=== PATIENT | female | born 2000 | race Asian ===

== ENCOUNTER 2019-01-06 10:53 | Inpatient (IN) | payer OTHER ==
[~2019-01-06 10:53] MED LIST: PROPOFOL/EMULSION 1,000 MG/100 ML BOTTLE IV ONE
--- NOTE | 2019-01-06 11:11 | EDPHY ---
H & P Time Seen by Provider: 01/06/19 11:09 Constitutional: Initial Vital Signs Temperature (C) 37.0 C 01/06/19 11:18 Heart Rate 130 H 01/06/19 11:18 Respiratory Rate 30 H 01/06/19 11:18 Blood Pressure 105/76 01/06/19 11:18 O2 Sat (%) 96 01/06/19 11:18 O2 Delivery Mode [Post Non-Rebreather Mask Procedure 1st] O2 Delivery Mode [Procedural Non-Rebreather Mask 2nd] O2 Delivery Mode [Procedural Non-Rebreather Mask 1st] O2 Delivery Mode [.Immediate Non-Rebreather Mask Pre-Procedure] O2 Delivery Mode Ventilator O2 (L/minute) [Post Procedure 15 1st] O2 (L/minute) [Procedural 2nd] 15 O2 (L/minute) [Procedural 1st] 15 O2 (L/minute) [.Immediate Pre- 15 Procedure] O2 (L/minute) 15 Allergies/Adverse Reactions: No Known Allergies Allergy (Unverified 01/06/19 11:23) Home Medications: Medication Instructions Recorded NK [No Known Home Meds] 01/06/19 Medical Decision Making - Diagnostics Imaging: I viewed and interpreted images myself ED Course/Re-evaluation: CHIEF COMPLAINT: Cough HISTORY OF PRESENT ILLNESS: The patient is a 18 y/o female complaining of a cough onset 1 week ago. She flew to [place] from [facility] 1 week ago and has a worsening cough since. Due to this cough she is unable to take a deep breath as that exacerbates her cough. As her symptoms have not improved she went to an urgent care who advised that she present to the emergency department. No fever, headache, body aches, lightheadedness, chest pain, heart palpitations, abdominal pain, urinary or bowel complaints, numbness, paresthesias. A Mandarin gyroscopic instrument tester was used at bedside to communicate with the patient. REVIEW OF SYSTEMS: A comprehensive 10 system review of systems is otherwise negative aside from elements mentioned in the history of present illness and medical decision making. PHYSICAL EXAM: HR, BP, O2 Sat, RR. Temp noted General Appearance: Alert, well hydrated, appropriate, and non-toxic appearing. Head: Atraumatic without scalp tenderness or obvious injury Eyes: Pupils equal, round, reactive to light and accommodation, EOMI, no trauma , no injection. Ears: Clear bilaterally, no perforation, normal landmarks Nose: Atraumatic, no rhinorrhea, clear. Throat: There is no erythema or exudates, no lesions, normal tonsils, mucus membranes moist. Neck: Supple, 2+ carotid upstroke, nontender, no lymphadenopathy. Respiratory: Diminished breath sounds on the right and has a cough. Tachypneic. No retractions, no wheezes, and no accessory muscle use. Cardiovascular: Tachycardic, no murmurs, rubs, or gallops. Bilateral carotid, radial, dorsalis pedis, and posterior tibial pulses intact. Good capillary refill all extremities. Gastrointestinal: Abdomen is soft, nontender, non-distended, no masses, no rebound, no guarding, no peritoneal signs. Musculoskeletal: Normal active ROM of all extremities, atraumatic. Neurological: Alert, appropriate, and interactive. The patient has normal DTRs and non-focal cranial nerves, motor, sensory, and cerebellar exam. Skin: No rashes, good turgor, no nodules on palpation. Past medical history: Denies Past surgical history: Denies Family history: Denies Social history: Originally from [place], single, student at . DIAGNOSTICS/PROCEDURES/CRITICAL CARE TIME: Chest x-ray: Right-sided complete tension pneumothorax. Procedure: Conscious sedation. Indication: Chest tube placement The patient is an appropriate candidate to tolerate procedural sedation. The patient's vitals signs and mental status are appropriate. The risks, benefits and alternatives of the sedation were discussed with the patient. The patient is ASA classification 1. The patient's Mallampati airway score was 1 and the patient did meet the 3-3-2 airway measurements. A time out was completed. The patient was sedated with 15mg IV Propofol and 30mg IV Ketamine. The patient was monitored with continuous pulse oximetry, lunchroom monitor and end tidal CO2. There were no complications and no significant hypoxemia. I performed both the sedation and the procedure. The total time I spent at the bedside during the procedural sedation was 20 minutes. The patient was examined after the procedural sedation and has returned to their pre-sedation baseline with normal vital signs and a normal examination. Procedure: Chest tube placement. Indication: Pneumothorax. Risks, benefits, alternatives discussed with the patient including but not limited to bleeding, infection, internal organ injury, and collapsed lung. Consent was obtained. A time out was observed. Full maximal sterile barrier technique was used including cap, gown, sterile gloves, large sheet, hand washing and chlorhexidine prep. The area was anesthetized with Bupivacaine with epinephrine. A 3cm skin incision was made on top of the 5th rib at the mid- clavicular line. A 36 Mauritanian chest tube was placed carefully over the top of the 5th rib on the right side. The tube was sutured in place and dressed with an occlusive Vaseline gauze then dry sterile dressing. Post placement chest x-ray demonstrated the tube to be in the appropriate position. Following placement of the tube the patient's condition initially improved. The patient tolerated the procedure well and there were no complications during the procedure. The procedure was performed by myself, Dr. Auguste. Post-procedure chest x-ray: Re-expanded right lung. Repeat post-procedure chest x-ray: Re-expansion right lung pulmonary edema. Critical care time spent by me, Dr. Auguste, exclusively with this patient was 45 minutes, exclusive of PA time and exclusive of procedures. The organ system at risk was pulmonary and placed a chest tube and transferred the patient to the general surgeon to prevent worsening of the patients condition. DIFFERENTIAL DIAGNOSIS: The differential diagnosis for the patient's cough included but was not limited to pneumothorax, pneumonia, myocardial infarction, acute mountain sickness, high altitude pulmonary edema, congestive heart failure, and pulmonary embolus. MEDICAL DECISION MAKING: The patient is a 18 y/o female presenting with a worsening cough onset 1 week ago after flying from [facility] to [place]. On exam she has diminished breath sounds on the right, is tachycardic, and has a cough. I suspect she has a right- sided pneumonia. Chest x-ray and labs ordered; DuoNeb administered. 1208: I reviewed patient's chest x-ray which reveals a complete right-sided pneumothorax. 1210: I consulted with Dr. Gunter, general surgeon, regarding this patient. I will place a chest tube. 1220: Reassessed patient and discussed imaging findings. I have also had a long discussion about placing a chest tube. She is not sure if she wants the chest tube and would like to talk with her family in [facility] first. 1310: Reassessed patient and had an extensive conversation with with her and her parents who are currently in [facility]. The patient and her parents are comfortable and agree with plan for chest tube. 1340: Patient has been transferred to trauma room 1 for a chest tube. 1348: 30mg IV Ketamine and 15mg IV propofol administered. 1405: I reviewed patient's repeat chest x-ray after the chest tube was placed. Her right lung is starting to inflate, suction has not been applied to the chest tube. 1406: Patient is waking up and is coughing due to the chest tube. Patient will need a 1mg IV Dilaudid. Suction applied. 1412: I reviewed patient's repeat chest x-ray after the chest tube was placed with suction. Her right lung is now re-expanded. I will page Dr. Gunter to admit this patient. 1419: Patient is anxious and coughing after the chest tube procedure; 1mg IV Ativan administered. 1428: I consulted with Dr. Gunter, he accepts admission of this patient. He agrees with my course of care. 1430: Reassessed patient as she continues to cough. Repeat chest x-ray ordered; it appears there is right-sided pulmonary edema. 1446: I consulted with Dr. Gunter, regarding patient's re-expansion pulmonary edema. Patient will need to be admitted to the ICU and maintained on at least a NRB. 1456: Patient's BP's are 92/70 and she is becoming pale. I will page the commanding officer homicide squad regarding this as a re-expansion pulmonary edema has a high mortality rate. The chance of a re-expansion pulmonary edema is very low, around 1%. 1504: Reassessed patient, there is now sero-sanguineus straw-colored fluid draining from the chest tube. Before there was only air coming from the chest tube and no blood was expressed when the tube was initially placed. By this point the patient has received a total fo 3L of fluid. We will not be giving the patient anymore fluid. 1515: Patient care turned over to Dr. Kumar pending consultation with Dr. Naranjo. (Celso Auguste) I took over care of this patient from Dr. Celso Auguste at 3:00 p.m.. 3:20 p.m., spoke with Dr. Tam Naranjo regarding further care of this patient. He does not recommend steroids at this time. The patient is currently on 15 L of facemask and nasal cannula oxygen with pulse oximetries in the low 90s. I suggested CPAP and he felt this was worth trying. Respiratory therapy paged. 3:30 p.m., I was called to the bedside, the patient was vomiting, vomit was a frothy serous sanguinous fluid. She was given 4 mg of IV Zofran and 12.5 mg of IV Phenergan. We got her vomiting under control. She started to relax more. We were able to get her back on face mask oxygen and nasal cannula oxygen. She is requiring high volumes of both maintain pulse oximetries in the mid to low 90s. Currently 15 L for each. Her blood pressures also have been more labile dipping down into the mid 70s systolic and then up to the high 80s. 3:40 p.m., respiratory therapy at the bedside. We explained to the patient the plan to try CPAP. Initial peep setting of 8. We attempted several trials of CPAP. The patient did not tolerate this. She started to become increasingly agitated. We withdrew attempts on CPAP and placed her back on nasal cannula high-flow O2 and face mask. She kept making repeated attempts to tear her nasal cannula on face mask off. Pulse oximetries dropped into the 70s. Systolic blood pressure into the low 70s. Decision was made to intubate her. Procedure: Rapid sequence intubation. Indication for the procedure was hypoxia, agitation, history of pneumothorax with re-expansion pulmonary edema. The patient was preoxygenated with 100% oxygen by face mask. The patient was sedated with 20 mg of IV etomidate and paralyzed with 200 mg of IV succinylcholine. Direct laryngoscopy was used to intubate secondary to significant pulmonary fluid buildup in her oral pharynx and the need for aggressive suctioning. The patient was orally endotracheally intubated under direct visualization with a 8.0 ETT. Tracheal intubation was confirmed with misting on the tube; breath sounds were auscultated equally bilaterally; appropriate color change with [place] End Tidal CO2 detector, capnography waveform is appropriate, oxygen saturation after procedure is 92%. Chest X-ray shows ETT low and in the right mainstem. Respiratory therapy was instructed to withdrawal the endotracheal tube by 3.5 cm. The procedure was performed by myself. Initial vent settings: FiO2 of 100%, assist control, rate of 16, tidal volume of 450, peep of 5. Post intubation the patient was sedated with 150 mcg of IV fentanyl initially. Her blood pressures remained very labile with systolic pressures in the mid 60s. Push dose phenylephrine was used for temporary pressor support. She was given a total of 300 mcg over about 12 min. With this medication we were able to get her systolic blood pressures up into the mid 80s. She was then started on a temporary low-dose norepi drip at 5 micrograms/minute. She was given 50 mg of IV ketamine for further sedation. She was then started on a ketamine drip at 1 milligram/kilogram per hour. Ketamine was used secondary to its favorable hemodynamic properties. Levophed drip was titrated up to a high of 8 micrograms/minute with systolic blood pressures in the 90s. We consistently got her systolic blood pressures over 100. Levophed drip was then weaned down. Systolic blood pressures remained just over 100. Levophed drip was discontinued. Her pulse oximetries remained in the low to mid 90s. She was then transferred to the ICU. ED critical care time: I spent a total of 105 minutes of critical care time in obtaining history, performing a physical exam, bedside monitoring of interventions, collecting and interpreting tests and discussion with consultants but not including time spent performing procedures. Of note, I spoke with the nursing staff on the ICU. I followed up on her repeat chest x-ray post intubation and endotracheal tube adjustment. The patient's endotracheal tube is still in the right mainstem on repeat chest x- ray after it was reported to be withdrawn 3.5 cm by the respiratory techs. The ICU staff is aware of this. The ICU staff are currently preparing to adjust the endotracheal tube appropriately. They will obtain a post adjustment chest x-ray as well. (Satya Kumar) - Data Points Laboratory Results: Laboratory Results 01/07/19 05:00 01/07/19 05:00 Microbiology Results: MICROBIOLOGY 01/06/19 23:00 Sputum, Induced/Suctioned - Final 01/06/19 23:00 Sputum, Induced/Suctioned Sputum Culture - Final Medications Given: Acetaminophen (Tylenol) 650 mg PO Q6H PRN PRN Reason: Pain, Mild/Fever,Can't Take PO Stop: 07/08/19 08:27 Last Admin: 01/09/19 09:29 Dose: 650 mg Enoxaparin Sodium (Lovenox) 40 mg SC DAILY MARISOL Stop: 07/06/19 11:29 Last Admin: 01/09/19 08:16 Dose: 40 mg Guaifenesin (Robitussin Oral Liquid 200mg/10ml) 200 mg PO Q4HRS PRN PRN Reason: Cough, Mild Stop: 07/07/19 21:53 Last Admin: 01/10/19 00:47 Dose: 200 mg Ibuprofen (Motrin) 600 mg PO Q6HRS PRN PRN Reason: Pain, Mild Stop: 07/07/19 21:53 Last Admin: 01/10/19 00:47 Dose: 600 mg Discontinued Medications Acetaminophen (Tylenol Rectal) 650 mg TX Q6H PRN PRN Reason: Pain, Mild/Fever,Can't Take PO Stop: 07/05/19 18:50 Last Admin: 01/07/19 03:47 Dose: 650 mg Albuterol/Ipratropium (Duoneb) 3 ml IH EDNOW ONE Stop: 01/06/19 11:21 Last Admin: 01/06/19 11:28 Dose: 3 ml Chlorhexidine Gluconate (Peridex) 15 ml PO Q12@08,20 [facility] Stop: 07/06/19 07:59 Last Admin: 01/08/19 07:58 Dose: Not Given Etomidate (Etomidate) 20 mg IVP ONCE ONE Stop: 01/06/19 17:15 Last Admin: 01/06/19 17:20 Dose: Not Given Etomidate (Etomidate) 20 mg IVP ONCE ONE Stop: 01/06/19 17:17 Last Admin: 01/06/19 15:57 Dose: 20 mg Famotidine (Pepcid) 20 mg PO BID [facility] Stop: 07/08/19 08:59 Last Admin: 01/09/19 08:16 Dose: 20 mg Fentanyl (Sublimaze) 150 mcg IV ONCE ONE Stop: 01/06/19 17:01 Last Admin: 01/06/19 16:01 Dose: 150 mcg Fentanyl (Sublimaze) 100 mcg IV ONCE ONE Stop: 01/06/19 17:01 Last Admin: 01/06/19 16:07 Dose: 100 mcg Furosemide (Lasix Injection) 20 mg IVP ONCE ONE Stop: 01/07/19 11:19 Last Admin: 01/07/19 11:24 Dose: 20 mg Hydromorphone HCl (Dilaudid) 1 mg IVP ONCE ONE Stop: 01/06/19 14:09 Last Admin: 01/06/19 14:08 Dose: 1 mg Sodium Chloride (Ns) 1,000 mls @ 0 mls/hr IV EDNOW ONE; Wide Open PRN Reason: Protocol Stop: 01/06/19 11:25 Last Admin: 01/06/19 11:28 Dose: 1,000 mls Sodium Chloride (Ns) 1,000 mls @ 0 mls/hr IV EDNOW ONE; Wide Open PRN Reason: Protocol Stop: 01/06/19 11:25 Last Admin: 01/06/19 11:39 Dose: 1,000 mls Sodium Chloride (Ns) 1,000 mls @ 0 mls/hr IV ONCE ONE; Wide Open PRN Reason: Protocol Stop: 01/06/19 15:16 Last Admin: 01/06/19 14:00 Dose: 1,000 mls Sodium Chloride (Ns) 1,000 mls @ 0 mls/hr IV ONCE ONE; Wide Open PRN Reason: Protocol Stop: 01/06/19 15:17 Last Admin: 01/06/19 14:30 Dose: 300 mls Ketamine HCl 500 mg/ Dextrose 510 mls @ 0 mls/hr IV CONT MARISOL PRN Reason: As Directed Stop: 07/05/19 16:29 Last Admin: 01/06/19 18:26 Dose: 510 mls Ketamine HCl 500 mg/ Dextrose 510 mls @ 0 mls/hr IV EDNOW ONE PRN Reason: As Directed Stop: 01/06/19 17:31 Last Admin: 01/06/19 16:27 Dose: 510 mls Norepinephrine 16 mg/ Dextrose 266 mls @ 0 mls/hr IV EDNOW ONE; Per Protocol PRN Reason: Protocol Stop: 01/06/19 17:31 Last Admin: 01/06/19 16:26 Dose: 266 mls Fentanyl/Sodium Chloride (Fentanyl 10 Mcg/Ml (Premix)) 100 mls @ 0 mls/hr IV CONT MARISOL; Per Protocol PRN Reason: Protocol Stop: 01/16/19 18:26 Last Admin: 01/07/19 20:29 Dose: 100 mls Propofol (Diprivan 10 Mg/Ml (Premix)) 100 mls @ 0 mls/hr IV CONT MARISOL; Per Protocol PRN Reason: Protocol Stop: 07/05/19 18:26 Last Admin: 01/06/19 18:43 Dose: 100 mls Ketamine HCl 500 mg/ Sodium (Chloride) 510 mls @ 0 mls/hr IV CONT MARISOL; Per Protocol PRN Reason: Protocol Stop: 07/05/19 18:59 Last Admin: 01/07/19 13:31 Dose: 510 mls Vancomycin/Sodium Chloride (Vancomycin 1 Gm (Premix)) 250 mls @ 250 mls/hr IV Q12H MARISOL PRN Reason: Protocol Stop: 02/05/19 22:29 Last Admin: 01/07/19 10:01 Dose: 250 mls Piperacillin/Tazobactam/Dextrose (Zosyn 3.375 Gm (Premix)) 50 mls @ 100 mls/hr IV Q6HRS MARISOL PRN Reason: Protocol Stop: 02/06/19 00:00 Last Admin: 01/07/19 11:26 Dose: 50 mls Famotidine/Sodium Chloride (Pepcid 20 Mg (Premix)) 50 mls @ 200 mls/hr IV Q12HRS MARISOL Stop: 07/06/19 08:59 Last Admin: 01/08/19 21:32 Dose: 50 mls Potassium Chloride (Potassium Cl 10 Meq (Premix)) 50 mls @ 50 mls/hr IV Q1H [facility] Stop: 01/08/19 12:12 Last Admin: 01/08/19 10:39 Dose: 50 mls Potassium Chloride 20 meq/ (Sodium Chloride) 1,000 mls @ 100 mls/hr IV CONT MARISOL Stop: 07/07/19 15:29 Last Admin: 01/08/19 15:41 Dose: 1,000 mls Potassium Chloride (Potassium Cl 10 Meq (Premix)) 50 mls @ 50 mls/hr IV Q1H [facility] Stop: 01/08/19 20:14 Last Admin: 01/08/19 18:36 Dose: 50 mls Ketamine HCl (Ketamine) 30 mg IVP EDNOW ONE Stop: 01/06/19 15:12 Last Admin: 01/06/19 13:48 Dose: 30 mg Lorazepam (Ativan Injection) 1 mg IVP ONCE ONE Stop: 01/06/19 14:22 Last Admin: 01/06/19 14:21 Dose: 1 mg Midazolam HCl (Versed) 2 mg IVP ONCE ONE Stop: 01/06/19 17:40 Last Admin: 01/06/19 17:51 Dose: 2 mg Midazolam HCl (Versed) 2 mg IVP ONCE ONE Stop: 01/06/19 22:34 Last Admin: 01/06/19 23:23 Dose: 2 mg Ondansetron HCl (Zofran) 4 mg IVP EDNOW ONE Stop: 01/06/19 15:39 Last Admin: 01/06/19 15:25 Dose: 4 mg Ondansetron HCl (Zofran) 4 mg IVP EDNOW ONE Stop: 01/06/19 14:16 Last Admin: 01/06/19 14:15 Dose: 4 mg Phenylephrine HCl (Neosynephrine) 200 mcg IVP ONCE ONE Stop: 01/06/19 16:16 Last Admin: 01/06/19 16:15 Dose: 200 mcg Phenylephrine HCl (Neosynephrine) 100 mcg IVP ONCE ONE Stop: 01/06/19 16:18 Last Admin: 01/06/19 16:17 Dose: 100 mcg Potassium Chloride (Klor-Con) 10 meq PO ONCE ONE PRN Reason: Protocol Stop: 01/09/19 07:18 Last Admin: 01/09/19 08:13 Dose: 10 meq Promethazine HCl (Phenergan) 12.5 mg IVP ONCE ONE Stop: 01/06/19 15:38 Last Admin: 01/06/19 15:25 Dose: 12.5 mg Propofol (Diprivan) 15 mg IVP EDNOW ONE Stop: 01/06/19 13:51 Last Admin: 01/06/19 13:50 Dose: 15 mg Succinylcholine Chloride (Quelicin) 200 mg IVP ONCE ONE Stop: 01/06/19 17:15 Last Admin: 01/06/19 15:57 Dose: 200 mg Point of Care Test Results: Blood Gas/Lactic Acid-Arterial 01/06/19 01/07/19 21:14 05:03 POC Blood Source ARTERIAL POC ABG pH 7.26 L POC ABG pCO2 33 L POC ABG pO2 167 H POC ABG HCO3 15 L POC ABG Total CO2 16 L POC ABG O2 Sat 99 H POC ABG Base Excess -12.0 L POC FiO2 90.0000 Tidal Volume 450 Departure - Departure Disposition: [facility] Acute Clinical Impression: Pneumothorax, right, Encounter for chest tube placement, Tension pneumothorax, Hypoxia, Hypotension Pulmonary edema Qualifiers: Chronicity: acute Qualified Code(s): J81.0 - Acute pulmonary edema Condition: Serious Report Scribed for: Celso Auguste Report Scribed by: Tanesha Ellison Date of Report: 01/06/19 Time of Report: 11:17
[2019-01-06] MEDS ORDERED: IPRATROPIUM/ALBUTEROL 3 ML DEYVIAL IH ONE (11:20)
[2019-01-06] MEDS ORDERED: NS 1,000 ML IV ONE ×4 (11:24→15:16)
[2019-01-06 11:47] LABS: PLATELET COUNT 348 10^3/uL (150-400)
[2019-01-06] MEDS ORDERED: PROPOFOL 200 MG/20 ML VIAL ONE (12:23)
[2019-01-06] MEDS ORDERED: KETAMINE 200 MG/20 ML VIAL ONE (12:24)
[2019-01-06] MEDS ORDERED: PROPOFOL 200 MG/20 ML VIAL IVP ONE (13:50)
[2019-01-06] MEDS ORDERED: HYDROmorphONE/DILAUDID 1 MG/ML INJ ONE (14:06)
[2019-01-06] MEDS ORDERED: HYDROmorphONE/DILAUDID 1 MG/ML INJ IVP ONE (14:08)
[2019-01-06] MEDS ORDERED: ONDANSETRON 4 MG/2 ML VIAL IVP ONE ×2 (14:15→15:38)
[2019-01-06] MEDS ORDERED: LORazepam 2 MG/ML INJ ONE (14:19)
[2019-01-06] MEDS ORDERED: LORazepam 2 MG/ML INJ IVP ONE (14:21)
[2019-01-06] MEDS ORDERED: ONDANSETRON 4 MG/2 ML VIAL ONE ×2 (14:32→15:25)
[2019-01-06] MEDS ORDERED: KETAMINE 500 MG/10 ML VIAL IVP ONE (15:11)
[2019-01-06] MEDS ORDERED: PROMETHAZINE HCL 25 MG/ML INJ ONE (15:25)
[2019-01-06] MEDS ORDERED: PROMETHAZINE HCL 25 MG/ML INJ IVP ONE (15:37)
[2019-01-06] MEDS ORDERED: PROPOFOL/EMULSION 1,000 MG/100 ML BOTTLE IV ONE (16:01)
[2019-01-06] MEDS ORDERED: PHENYLEPHRINE HCL 100 MCG/ML SYR IVP ONE ×2 (16:15→16:17)
[2019-01-06] MEDS ORDERED: PHENYLEPHRINE HCL 100 MCG/ML SYR ONE (16:16)
[2019-01-06] MEDS: NOREPINEPHRINE BITARTRATE 16 MG in D5W 250 ML IV ONE ×2 (16:26→17:52)
[2019-01-06] MEDS ORDERED: KETAMINE 500 MG in D5W 500 ML IV SCH (16:30)
[2019-01-06] MEDS ORDERED: fentaNYL 100 MCG/2 ML INJ IV ONE ×2 (17:00)
[2019-01-06] MEDS ORDERED: NOREPINEPHRINE BITARTRATE 16 MG in D5W 250 ML IV SCH (17:00)
[2019-01-06] MEDS ORDERED: SUCCINYLCHOLINE CHLORIDE 200 MG/10 ML VIAL IVP ONE (17:14)
[2019-01-06] MEDS ORDERED: ETOMIDATE 40 MG/20 ML INJ IVP ONE ×2 (17:14→17:16)
[2019-01-06] MEDS ORDERED: ETOMIDATE 40 MG/20 ML INJ ONE (17:19)
[2019-01-06] MEDS ORDERED: SUCCINYLCHOLINE CHLORIDE 200 MG/10 ML SYR IVP ONE (17:19)
--- NOTE | 2019-01-06 17:24 | PDGENHP ---
History and Physical - Chief Complaint right pneumothorax - History of Present Illness 18 y/o female with one week history of cough and dyspnea. Patient presented to the ED and was found to have a right tension pneumothorax. I was in the OR at the time and Dr. Stevens placed a right closed tube thoracostomy. After expansion her coughing worsened and she complained of increasing pain and dyspnea. Repeat CXR showed right pulmonary edema. Her respiratory distress worsened despite re-expansion of the lung and she was intubated in the ED. She is admitted now to the ICU for further supportive care. History Information - Allergies/Home Medication List Allergies/Adverse Reactions: No Known Allergies Allergy (Unverified 01/06/19 11:23) Home Medications: NK [No Known Home Meds] 01/06/19 [Last Taken Unknown] I have personally reviewed and updated: family history (unobtainable), medical history (unobtainable), social history, surgical history (unobtainable) - Past Medical History Additional medical history: unobtainable - Surgical History Additional surgical history: unobtainable - Family History Additional family history: unobtainable - Social History Smoking Status: Never smoked Alcohol Use: Other (unknown) Drug Use: Other (unknown) Additional social history: speaks Mandarin/limited Bulgarian Review of Systems Review of Systems: unobtainable Physical Exam Physical Exam: Temp Pulse Resp BP Pulse Ox 37.0 C 127 H 18 120/70 97 01/06/19 11:18 01/06/19 17:15 01/06/19 17:15 01/06/19 17:15 01/06/19 17:15 O2 (L/minute) [.Immediate Pre- 15 Procedure] FIO2 (%) 90 Constitutional: other (intubated young female/sedated) Eyes: anicteric sclera Cardiovascular: regular rate and rhythym, tachycardia Peripheral Pulses: 4+: dorsalis-pedis (R), dorsalis-pedis (L) Respiratory: reduced air movement (right chest), other (8Fr. cath right chest 4th ICS laterally/no air leak) Gastrointestinal: distension, other (tympanitic) Musculoskeletal: generalized weakness Neurologic: other (unable to assess) Lymph, Heme, Immunologic: no cervical LAD, no supraclavicular LAD Lab Data & Imaging Review 01/06/19 11:35 01/06/19 11:35 WBC 12.82 10^3/uL (3.80-9.50) H 01/06/19 11:35 RBC 5.37 10^6/uL (4.18-5.33) H 01/06/19 11:35 Hgb 15.5 g/dL (12.6-16.3) 01/06/19 11:35 Hct 45.7 % (38.0-47.0) 01/06/19 11:35 MCV 85.1 fL (81.5-99.8) 01/06/19 11:35 MCH 28.9 pg (27.9-34.1) 01/06/19 11:35 MCHC 33.9 g/dL (32.4-36.7) 01/06/19 11:35 RDW 12.6 % (11.5-15.2) 01/06/19 11:35 Plt Count 348 10^3/uL (150-400) 01/06/19 11:35 MPV 9.4 fL (8.7-11.7) 01/06/19 11:35 Neut % (Auto) 59.7 % (39.3-74.2) 01/06/19 11:35 Lymph % (Auto) 29.9 % (15.0-45.0) 01/06/19 11:35 Keith % (Auto) 7.0 % (4.5-13.0) 01/06/19 11:35 Eos % (Auto) 2.7 % (0.6-7.6) 01/06/19 11:35 Baso % (Auto) 0.5 % (0.3-1.7) 01/06/19 11:35 Nucleat RBC Rel Count 0.0 % (0.0-0.2) 01/06/19 11:35 Absolute Neuts (auto) 7.65 10^3/uL (1.70-6.50) H 01/06/19 11:35 Absolute Lymphs (auto) 3.83 10^3/uL (1.00-3.00) H 01/06/19 11:35 Absolute Monos (auto) 0.90 10^3/uL (0.30-0.80) H 01/06/19 11:35 Absolute Eos (auto) 0.35 10^3/uL (0.03-0.40) 01/06/19 11:35 Absolute Basos (auto) 0.06 10^3/uL (0.02-0.10) 01/06/19 11:35 Absolute Nucleated RBC 0.00 10^3/uL (0-0.01) 01/06/19 11:35 Immature Gran % 0.2 % (0.0-1.1) 01/06/19 11:35 Immature Gran # 0.03 10^3/uL (0.00-0.10) 01/06/19 11:35 Sodium 139 mEq/L (135-145) 01/06/19 11:35 Potassium 4.2 mEq/L (3.5-5.2) 01/06/19 11:35 Chloride 105 mEq/L (97-110) 01/06/19 11:35 Carbon Dioxide 21 mEq/l (22-31) L 01/06/19 11:35 Anion Gap 13 mEq/L (6-14) 01/06/19 11:35 BUN 11 mg/dL (7-23) 01/06/19 11:35 Creatinine 0.8 mg/dL (0.6-1.0) 01/06/19 11:35 Estimated GFR > 60 01/06/19 11:35 Glucose 109 mg/dL (70-100) H 01/06/19 11:35 Calcium 10.0 mg/dL (8.5-10.4) 01/06/19 11:35 Visualized and Interpreted Chest x-ray results: Yes Chest X-Ray results: infiltrate (right lung opacification c/w re-expansion pulmonary edema, no pleural effusion, CT in good position, ETT at the luis enrique/R mainstem junction, massive gastric dilatation) Assessment & Plan Assessment: Encounter for chest tube placement (Acute) Pneumothorax, right (Acute) Pulmonary edema (Acute) Tension pneumothorax (Acute) ventilatory failure requiring mechanical ventilatory support Plan: mechanical ventilatory support DC CT after extubation Nasal swab for Influenza
[2019-01-06] MEDS ORDERED: KETAMINE 500 MG in D5W 500 ML IV ONE (17:30)
[2019-01-06] MEDS ORDERED: MIDAZOLAM 2 MG/2 ML VIAL IVP ONE ×2 (17:39→22:33)
[2019-01-06] MEDS ORDERED: MIDAZOLAM 2 MG/2 ML VIAL ONE ×2 (17:41→22:27)
[2019-01-06] MEDS ORDERED: PROPOFOL/EMULSION 100 ML IV SCH (18:27)
[2019-01-06] MEDS ORDERED: KETAMINE 500 MG in NS 500 ML IV SCH (19:00)
[2019-01-06] MEDS: ACETAMINOPHEN 325 MG SUPP PR PRN (21:25)
[2019-01-06] MEDS ORDERED: MIDAZOLAM 2 MG/2 ML VIAL IVP PRN (22:23)
--- NOTE | 2019-01-06 23:02 | SOAPPROG ---
Downtime Inpatient MD Late Entry SOAP Note: INSULATION SUPERVISOR called because patient hypotensive with SBP in the 80's. She has responded to volume challenge. Her T increased to 38.6 and she is tachycardic. Last ABG showed a metabolic acidosis. Findings meet criteria for sepsis and the etiology of her right pulmonary infiltrate remains suspect. I recommended placement of a CVP for monitoring central pressures and starting empiric antibiotic therapy after obtained blood and sputum cultures. Case was discussed with Dr. Waite and hospitalist consult was requested
--- NOTE | 2019-01-06 23:06 | POSTOPPROG ---
Post Op Note Date of Operation: 01/06/19 (#[id number]) Surgeon: Cayden Gunter (, FACS) Anesthesia: Local (Specify) Pre-op Diagnosis: sepsis/ventilaory failure Procedure: placement right subclavian 3xlumen catheter Findings: CXR shows tip of cath at the RA/SVC junction Inf/Abcess present in the surg proc area at time of surgery?: No EBL: Minimal Bowel Protocol: N/A Clean Closure Performed: N/A
[2019-01-06] MEDS: VANCOMYCIN HCL/NORMAL SALINE 250 ML IV SCH (23:23)
[2019-01-06] MEDS: PIPERACILLIN/TAZO 3.375 GM/DEX 50 ML IV SCH (23:24)
[2019-01-06] MEDS: fentaNYL/NACL 100 ML IV SCH (23:33)
[2019-01-06] MEDS ORDERED: IOPAMIDOL (ISOVUE 370) 100 ML BTL IV ONE (23:46)
--- NOTE | 2019-01-06 23:53 | GOP ---
[f rep st] OPERATIVE REPORT DATE OF OPERATION: 01/06/2019 SURGEON: Cayden Gunter MD ANESTHESIA: Local. PREOPERATIVE DIAGNOSIS: 1. Need for venous access for central venous pressure monitoring. 2. Sepsis and ventilatory failure. POSTOPERATIVE DIAGNOSIS: PROCEDURE PERFORMED: Placement of right subclavian triple-lumen catheter. FINDINGS: Uncomplicated catheter placement with tip of catheter at the SVC right atrial junction. ESTIMATED BLOOD LOSS: 10 cc. DESCRIPTION OF PROCEDURE: Informed consent could not be obtained because the patient was intubated, and her family is in [facility]. Before proceeding, a time-out and identification the patient was per formed. The right chest wall and neck were prepped with chlorhexidine. A sterile barrier and sterile field w ere created. A triple-lumen catheter kit was opened and 1% lidocaine used to infiltrate the right in fraclavicular fossa. An 18-gauge thin wall needle was used to puncture the subclavian vein on the 1s t pass. A flexible J-wire was introduced and advanced without ectopy. A isadora was made in the skin a t the wire entry site and a dilator passed over the wire. The dilator was removed and replaced with a triple-lumen catheter, which was advanced without resistance to a distance of 15 cm. The wire was withdrawn. Good venous return was noted. A sample was obtained for blood cultures. The triple-lume n catheter was then flushed with 100 unit/cc heparin in all 3 lumens and capped. It was secured to t he skin with 3-0 silk sutures. Sterile antibiotic disk and dressings were placed. A postprocedural chest x-ray was obtained and shows the tip of the catheter at the superior vena cava right atrial ramin ction. Her right chest tube remains in good position as does her endotracheal tube. COMPLICATIONS: None. /[id number]/MODL
--- NOTE | 2019-01-07 00:44 | PDHOSCONS ---
History and Physical - Chief Complaint Cough - History of Present Illness 18 yo F who flew to [place] from [facility] one week ago presented to the ED today with cough. She is Mandarin speaking only. In the ED she was found to have a R sided tension pneumothorax, which was treated with a chest tube. After reexpansion of the R lung the patient became dyspneic and hypoxic. She required intubation and also has displayed intermittent hypotension throughout the day. Subsequent chest X-rays through the day demonstrated severe R-sided pulmonary edema, which may be due to re-expansion. This afternoon the patient has been persistently febrile, tachycardic, and intermittently hypotensive so the hospital medicine service was consulted for additional management. During my evaluation the patient is intubated and sedated. Case discussed with general surgeon Dr. Gunter; records reviewed and summarized above. History Information - Allergies/Home Medication List Allergies/Adverse Reactions: No Known Allergies Allergy (Unverified 01/06/19 11:23) Home Medications: NK [No Known Home Meds] 01/06/19 [Last Taken Unknown] I have personally reviewed and updated: family history, medical history - Past Medical History Additional medical history: unobtainable - Surgical History Additional surgical history: unobtainable - Family History Additional family history: unobtainable - Social History Smoking Status: Never smoked Alcohol Use: Other (unknown) Drug Use: Other (unknown) Additional social history: speaks Mandarin/limited [place] Islander Review of Systems Review of Systems: Unable to obtain 2/2 mental status Physical Exam Physical Exam: Temp Pulse Resp BP Pulse Ox 38.2 C 103 H 22 H 99/65 L 100 01/06/19 22:00 01/06/19 22:00 01/06/19 22:00 01/06/19 22:00 01/06/19 22:00 O2 (L/minute) [Post Procedure 15 1st] O2 (L/minute) [Procedural 2nd] 15 O2 (L/minute) [Procedural 1st] 15 O2 (L/minute) [.Immediate Pre- 15 Procedure] O2 (L/minute) 15 FIO2 (%) 70 Constitutional: appears nourished, other (Intubated, sedated) Eyes: PERRL, anicteric sclera Ears, Nose, Mouth, Throat: moist mucous membranes, no oral mucosal ulcers Cardiovascular: no murmur, rub, or gallop, tachycardia Respiratory: inspiratory crackles (R sided), other (Intubated) Gastrointestinal: normoactive bowel sounds, soft, non-tender abdomen Skin: warm, normal color Musculoskeletal: no joint effusions, No asymmetric calves Neurologic: other (Intubated, sedated) Lab Data & Imaging Review 01/06/19 11:35 01/06/19 11:35 WBC 12.82 10^3/uL (3.80-9.50) H 01/06/19 11:35 RBC 5.37 10^6/uL (4.18-5.33) H 01/06/19 11:35 Hgb 15.5 g/dL (12.6-16.3) 01/06/19 11:35 Hct 45.7 % (38.0-47.0) 01/06/19 11:35 MCV 85.1 fL (81.5-99.8) 01/06/19 11:35 MCH 28.9 pg (27.9-34.1) 01/06/19 11:35 MCHC 33.9 g/dL (32.4-36.7) 01/06/19 11:35 RDW 12.6 % (11.5-15.2) 01/06/19 11:35 Plt Count 348 10^3/uL (150-400) 01/06/19 11:35 MPV 9.4 fL (8.7-11.7) 01/06/19 11:35 Neut % (Auto) 59.7 % (39.3-74.2) 01/06/19 11:35 Lymph % (Auto) 29.9 % (15.0-45.0) 01/06/19 11:35 [place] % (Auto) 7.0 % (4.5-13.0) 01/06/19 11:35 Eos % (Auto) 2.7 % (0.6-7.6) 01/06/19 11:35 Baso % (Auto) 0.5 % (0.3-1.7) 01/06/19 11:35 Nucleat RBC Rel Count 0.0 % (0.0-0.2) 01/06/19 11:35 Absolute Neuts (auto) 7.65 10^3/uL (1.70-6.50) H 01/06/19 11:35 Absolute Lymphs (auto) 3.83 10^3/uL (1.00-3.00) H 01/06/19 11:35 Absolute Monos (auto) 0.90 10^3/uL (0.30-0.80) H 01/06/19 11:35 Absolute Eos (auto) 0.35 10^3/uL (0.03-0.40) 01/06/19 11:35 Absolute Basos (auto) 0.06 10^3/uL (0.02-0.10) 01/06/19 11:35 Absolute Nucleated RBC 0.00 10^3/uL (0-0.01) 01/06/19 11:35 Immature Gran % 0.2 % (0.0-1.1) 01/06/19 11:35 Immature Gran # 0.03 10^3/uL (0.00-0.10) 01/06/19 11:35 POC Blood Source ARTERIAL 01/06/19 21:14 Patient Temperature 38.4 DEGREES 01/06/19 21:14 POC ABG pH 7.26 (7.35-7.45) L 01/06/19 21:14 POC ABG pCO2 33 mmHg (34-38) L 01/06/19 21:14 POC ABG pO2 167 mmHg (65-75) H 01/06/19 21:14 POC ABG HCO3 15 mEq/L (22-26) L 01/06/19 21:14 POC ABG Total CO2 16 mEq/L (23-27) L 01/06/19 21:14 POC ABG O2 Sat 99 % (92-95) H 01/06/19 21:14 POC ABG Base Excess -12.0 mEq/L (-2.5-2.5) L 01/06/19 21:14 POC FiO2 90.0000 % (0-100) 01/06/19 21:14 Sodium 139 mEq/L (135-145) 01/06/19 11:35 Potassium 4.2 mEq/L (3.5-5.2) 01/06/19 11:35 Chloride 105 mEq/L (97-110) 01/06/19 11:35 Carbon Dioxide 21 mEq/l (22-31) L 01/06/19 11:35 Anion Gap 13 mEq/L (6-14) 01/06/19 11:35 BUN 11 mg/dL (7-23) 01/06/19 11:35 Creatinine 0.8 mg/dL (0.6-1.0) 01/06/19 11:35 Estimated GFR > 60 01/06/19 11:35 Glucose 109 mg/dL (70-100) H 01/06/19 11:35 Calcium 10.0 mg/dL (8.5-10.4) 01/06/19 11:35 Imaging Review: Imaging Impressions Chest X-Ray 01/06/19 00:00 Impression: Smallbore right pleural tube placement with mild residual right pneumothorax. Reexpansion of right lung and decreased tension. Chest X-Ray 01/06/19 00:00 Impression: Progressive air space consolidation right lung compatible with reexpansion pulmonary edema. Near-complete resolution of right pneumothorax. Chest X-Ray 01/06/19 11:22 Impression: Large tension right hydropneumothorax with complete collapse of the right lung. Chest X-Ray 01/06/19 15:59 Impression: 1. Interim intubation with the tip of the ET tube in the proximal right mainstem bronchus, and should be withdrawn 3.5 cm. 2. Stable positioning of a right-sided chest tube with areas of extensive left interstitial/alveolar consolidation in the right hemithorax. 3. Mild left elodia- and infrahilar congestion. 4. Moderate gastric air distention. Findings were discussed with Satya Kumar MD at 16:22, on 01/06/2019. Chest X-Ray 01/06/19 16:25 Impression: 1. The endotracheal tube remains located within the right mainstem bronchus approximately 3.7 cm above its expected location. 2. Patchy airspace opacities on the right, similar to the prior study. Findings and recommendations discussed with ABIEL GUNTER at 1711 hour, 2018. Abdomen X-Ray 01/06/19 17:18 Impression: The tip of the esophagogastric tube terminates in the gastric body. Chest X-Ray 01/06/19 17:30 Impression: 1. Interim repositioning of the endotracheal tube which terminates 7 mm above the luis enrique. 2. Interim placement of an esophagogastric tube which extends to the stomach. 3. Tiny right apical pneumothorax with stable positioning of a right-sided chest tube. 4. Persistent extensive interstitial/alveolar opacities the right hemithorax, with slightly more pronounced left elodia/infrahilar congestion and subsegmental atelectasis. Chest X-Ray 01/06/19 22:50 Impression: 1. Interim placement of a right subclavian central venous catheter, terminating in the distal SVC, and partial proximal withdrawal of the endotracheal tube compared to 5:31 PM (terminating 3.5 cm above the luis enrique). 2. Persistent interstitial/alveolar consolidation noted throughout the right hemithorax, with no residual pneumothorax observed. 3. Left elodia/infrahilar subsegmental atelectasis. Assessment & Plan Assessment: 18 yo F w/ unknown PMHx presented with a cough, found to have a R sided tension pneumothorax, now s/p chest tube but febrile, tachycardic, and hypotensive. Plan: 1. R tension pneumothorax - Unclear etiology; the patient traveled from [facility] to [place] and presented with only a cough. Now s/p chest tube with no residual pneumothorax seen on follow-up imaging. - Surgery service managing - Intubated in the ICU - CT ordered for better evaluation of lung parenchyma 2. Hypotension - Intermittently hypotensive today requiring vasopressor support after intubation. MAPs are currently low/normal without vasopressors. Etiology is unclear. Initially it is likely tension pneumothorax was contributing. Sedation in the setting of low/normal baseline BP is also likely a factor. Fever and intercontinental air travel bring up possibility of sepsis or pulmonary embolism. - Will obtain CTA to rule out PE - CBC ordered to monitor for bleeding - Infectious work-up as below 3. Fever - Patient persistently febrile this afternoon; tachycardia and hypotension also suspicious for sepsis. Source is unclear although pulmonary is a reasonable concern noting presenting symptoms. - Blood cultures, sputum culture, UA ordered - Vanc/Zosyn for broad coverage initially - CTA ordered for better evaluation of lung parenchyma and to rule out PE 4. Pulmonary edema - Right sided infiltrates developed after placement of chest tube, consistent with reexpansion pulmonary edema. - Supportive care - Will order TTE to rule out cardiac component noting severity of illness - CTA as above Thank you for this consult, the hospital medicine service will follow along with you.
[2019-01-07] MEDS: ACETAMINOPHEN 325 MG SUPP PR PRN (03:47)
[2019-01-07] MEDS: PIPERACILLIN/TAZO 3.375 GM/DEX 50 ML IV SCH ×2 (05:04→11:26)
[2019-01-07] MEDS: CHLORHEXIDINE GLUCONATE 15 ML UDL PO SCH ×2 (07:31→20:31)
[2019-01-07] MEDS: FAMOTIDINE 20 MG/NACL 50 ML IV SCH ×2 (08:11→20:29)
[2019-01-07] MEDS: VANCOMYCIN HCL/NORMAL SALINE 250 ML IV SCH (10:01)
--- NOTE | 2019-01-07 10:45 | PDMN ---
Medical Necessity Medical necessity: [facility] [place]160 Sepsis, A-3 days: 18 yo w/ R tension pneumothorax unclear etiology. Chest tube place but pt cont to deteriorate - developed fever , hypotension and resp failure w/ elevated lactic acid meeting sepsis criteria. Pt requiring ventilator and IV vasopressor support. Admit ICU IP status.
[2019-01-07] MEDS ORDERED: FUROSEMIDE 20 MG/2 ML VIAL IVP ONE (11:18)
--- NOTE | 2019-01-07 11:21 | PDINTPN ---
Solution Design And Analysis Manager Progress Note Assessment/Plan: Assessment: 18yo presented 01/06 with 1 week of cough and dyspnea starting around the time of a flight from [facility]. CXR with right tension PTX. Perc CT placed, shortly thereafter she developed dense infiltrates, hypoxemia, respiratory distress c/w re-expansion pulmonary edema, which required intubation. Spontaneous pneumothorax: Resolved with chest tube. Would recommend VATS once recovered from current episode. Reexpansion pulmonary edema: Severe/extensive, persists on CXR this morning. Acute hypoxemic respiratory failure: Due to re-expansion pulmonary edema. Doing OK on vent, with good oxygenation on 40% oxygen. Had undercompensated metabolic acidosis on ABG on AC 16. Elevated WBC: Likely due to acute illness/stress. Doubt bacterial infection. Hypotension: resolved Plan: Increase PEEP. Minimize IVF. Give Lasix. D/C antibiotics and observe. Follow BP closely, use pressors if hypotensive. DVT prophylaxis. Follow CXR. Extubate when improved, hopefully in the next 24 hours. D/W RN, RT, Trauma surgeon 01/07/19 11:30 01/07/19 11:31 Subjective: Intubated, sedated Objective: Vital Signs Temp Pulse Resp BP Pulse Ox 38.2 C 107 H 18 110/70 97 01/07/19 10:52 01/07/19 10:52 01/07/19 10:52 01/07/19 10:52 01/07/19 10:52 CXR: Persistent Infiltrates on right. Images reviewed by me. CT Chest: Extensive dense consolidation right lung. No residual PTX. Possible bleb right apex. Images reviewed by me. Laboratory Tests 01/06/19 01/07/19 21:14 05:03 POC ABG pH 7.26 L ABG pH 7.27 L POC ABG pCO2 33 L POC ABG pO2 167 H POC ABG HCO3 15 L ABG HCO3 17 L POC ABG Total CO2 16 L POC ABG O2 Sat 99 H ABG O2 Saturation 91 L O2 Concentration % 40 Set Respiration Rate 16 POC FiO2 90.0000 Tidal Volume 450 PEEP 3 Laboratory Tests 01/07/19 01/07/19 05:00 05:00 WBC 28.72 H RBC 4.84 Hgb 14.0 Plt Count 242 Sodium 139 Potassium 3.8 Chloride 112 H Carbon Dioxide 19 L Anion Gap 8 BUN 6 L Lactate Dehydrogenase 635 H Microbiology 01/06/19 23:00 Sputum, Induced/Suctioned - Final 01/06/19 18:20 Nasal, Sinus - Swab Respiratory Panel (PCR) - Final No Organism Detected By Pcr Physical Exam - Physical Exam General Appearance: alert, no apparent distress EENT: normal ENT inspection Neck: normal inspection Respiratory: lungs clear, normal breath sounds Cardiac/Chest: regular rate, rhythm, No edema Abdomen: normal bowel sounds, non-tender Skin: normal color, warm/dry Extremities: normal inspection Neuro/Psych: No alert ICD10 Worksheet Patient Problems: Problems Problem Status Onset Encounter for chest tube placement Acute Pneumothorax, right Acute Pulmonary edema Acute Tension pneumothorax Acute
[2019-01-07] MEDS: ENOXAPARIN 40 MG/0.4 ML SYR SC SCH (12:01)
--- NOTE | 2019-01-07 12:08 | GCON ---
[f rep st] CONSULTATION PULMONARY/CRITICAL CARE CONSULTATION DATE OF CONSULTATION: 01/06/2019 REFERRING PHYSICIAN: Cayden Gunter MD REASON FOR REFERRAL: Evaluation and management of hypoxemic respiratory failure with re-expansion pu lmonary edema. HISTORY: The patient is a 18-year-old woman who had the onset of cough and dyspnea about a week ago. This occurred about the time of a flight from [facility] to [place], and the cough worsened at that time. She had increased shortness of breath with the sensation she could not take a full breath. S he presented to the urgent care center and then was referred to the emergency department, where she w as found to have a right pneumothorax with signs of tension. A chest tube was placed and showed good re-expansion of the lung without using suction. About an hour later she began to have increasing sy mptoms of dyspnea and also had hypoxemia. A chest x-ray showed increased infiltrates on the right, consistent with re-expansion pulmonary edema . The patient developed increased respiratory distress, hypoxemia, and started coughing up watery fl uid consistent with edema. CPAP was attempted, but the patient did not tolerate this, so she was int ubated shortly before I saw her. At the time I saw her, she was oxygenating well, paralyzed/sedated, but had hypotension, receiving phenylephrine and starting norepinephrine to sort blood pressure. Th ere has been some thin serosanguineous fluid coming from the chest tube, and I suctioned thin, frothy fluid consistent with edema from her endotracheal tube several times. She had received a total of 3 L of fluids prior to intubation. PAST MEDICAL HISTORY: Unobtainable. MEDICATIONS: Unknown. ALLERGIES: No known drug allergies. SOCIAL HISTORY: The patient is a [employer] student. She is from [facility] and speaks Mandarin with limited Indian. She has never smoked. REVIEW OF SYSTEMS: Unobtainable. PHYSICAL EXAMINATION: VITAL SIGNS: Blood pressure is 108/62, with a heart rate of 113. Oxygen satu rations are in the 90s. HEENT: Normocephalic and atraumatic. No icterus. She has an endotracheal tube in place. NECK: No adenopathy. Trachea is midline. CHEST: She has some rhonchi on the right, with clear lungs on the left. CARDIAC: Regular tachycardia without murmur. ABDOMEN: Soft, nonten ying. Bowel sounds are present. EXTREMITIES: No clubbing, cyanosis, or edema. NEURO: She is unres ponsive, sedated and paralyzed. LABORATORY: Chemistry group is unremarkable. Hemoglobin 15.5, white blood count is mildly elevated at 12.8 with a platelet count of 348. An arterial blood gas shows a pH of 7.26 with a pO2 of 167, CO 2 of 33 and a bicarbonate of 16 on 90% oxygen. IMAGING: A chest x-ray shows a right mainstem intubation with extensive dense infiltrates on the rig ht. There is no residual pneumothorax. Images reviewed by me. ASSESSMENT: 1. Hypoxemic respiratory failure. This is likely due to re-expansion pulmonary edema after treatmen t of a right tension pneumothorax. Other possibilities include pneumonia or congestive heart failure , but I think that these are unlikely given the unilateral symptoms that occurred immediately after r e-expansion of the lung. There is a question of some vomiting, but from the description, it sounds m ore like this was coughing up of edema fluid. She is currently managed with positive-pressure ventil ation, although the PEEP is low due to hypotension. 2. Spontaneous pneumothorax. This occurred at about the time of travel from [facility]. She had ten vy on the initial chest x-ray. This has been effectively treated with a chest tube. This may have originally occurred because of cough from a respiratory tract infection. She may also have a congen ital bleb which resulted in a spontaneous pneumothorax. 3. Hypotension. This occurred primarily after sedation and paralysis for intubation. She may have been intravascularly volume depleted as a result of the re-expansion pulmonary edema despite receivin g 3 L of IV fluids. She was initially treated with phenylephrine and norepinephrine, but this improv ed by the time she reached the ICU when she was off pressors. RECOMMENDATIONS: 1. Continue mechanical ventilation for now. We will increase the PEEP once her blood pressure joann ates this better. 2. Minimize IV fluids. 3. Consider diuresis once her blood pressure is more stable and we can confirm that her renal functi on is stable. 4. Respiratory panel and sputum culture will be obtained. /[id number]/MODL
--- NOTE | 2019-01-07 13:02 | ECHO ---
[email or web address] [address] [address] Main: [phone] Echocardiography Examination Transthoracic Name: LUIS COLINDRES MR#: [id number] Study Date: 01/07/2019 Study Time: 09:31 AM Date of : 2000 Age: 18 year(s) Height: 165.1 cm (65 in.) Weight: 52.62 kg (116 lb.) BSA: 1.57 m2 Gender: Female Examination: Echo Contrast: Image Quality: Adequate Rhythm: Tachycardia Heart Rate: 110 bpm BP: 129 mmHg/85 mmHg Indication: Pulmonary Edema, Intubated, Rt Pneumothorax Procedure Staff Referring Physician: Assistant Portfolio Manager: Michael Lloyd RDCS Reading Physician: Manuel Dominguez MD Requesting Provider: Indication: Pulmonary Edema, Intubated, Rt Pneumothorax Measurements Chambers AV/MV Label Value Normal Value Label Value Normal Value LVOT Vmax 0.78 m/s (0.7m/s - 1.1m/s) AV PGmax 6 mmHg LVOTd 1.8 cm (1.8cm - 2cm) AV PGmean 3 mmHg LVOT PGmax 2 mmHg AV Vmax 1.19 m/s LVDd, 2D 3.4 cm (3.9cm - 5.3cm) ANDRADE (Vmax) 1.7 cm2 LVDs, 2D 2.2 cm (2.1cm - 4cm) ANDRADE (VTI) 1.8 cm2 IVSd, 2D 0.6 cm (0.6cm - 1.1cm) MV E Vmax 1.13 m/s LVPWd, 2D 0.8 cm MV A Vmax 0.9 m/s LVEF, 2D 65 % (54% - 74%) MV E/A 1.26 LVOT PGmean 1 mmHg MV E/E' lateral 5.3 LVOT Vmean 0.47 m/s MV E/E' septal 20.3 (2.4 - 2.4) RVDd, 2D 2.5 cm (1.9cm - 3.8cm) MV E' septal 0.06 m/s Additional Vessels MV E' lateral 0.21 m/s Label Value Normal Value MV E/E' mean 8.37 AoRoot, MM 2.5 cm (2.2cm - 3.7cm) MV E' mean 0.14 m/s TV/PV Label Value Normal Value RA Pressure 5 mmHg RVSP 27 mmHg TR Pmax 22 mmHg TR Vmax 2.32 m/s Patient: LUIS COLINDRES Study Date: 01/07/2019 Page 1 of 3 09:31 AM PV PGmax 4 mmHg PV Vmax, Caliper 1.02 m/s (0.6m/s - 0.9m/s) Conclusions Left Ventricle: Left ventricle is normal in size. EF range is estimated at 60 % - 65 %. There is paradoxic septal motion suggestive of bundle branch block, paced cardiac rhythm, or prior cardiac surgery. Left ventricular diastolic function parameters are normal. Right Ventricle: Right ventricular systolic function is normal. Aortic Valve: The aortic valve is not well seen in the PSSax view. Unable to determine if Trileaflet.. Pericardium: A small pericardial effusion was identified. There is no evidence of hemodynamic compromise. Echo findings are not consistent with tamponade physiology. Findings Left Ventricle: Left ventricle is normal in size. Normal global systolic left ventricular function. EF range is estimated at 60 % - 65 %. Left ventricle wall thickness is normal. There is paradoxic septal motion suggestive of bundle branch block, paced cardiac rhythm, or prior cardiac surgery. Left ventricular diastolic function parameters are normal. Off axis views obtained due to lung interference. Right Ventricle: Upper normal size right ventricle. Right ventricular systolic function is normal. Left Atrium: The left atrium is normal in size. Right Atrium: The right atrium is normal in size. Mitral Valve: Mitral valve appears structurally normal. No mitral regurgitation. No mitral valve stenosis. Aortic Valve: The aortic valve is not well seen in the PSSax view. Unable to determine if Trileaflet.. Aortic leaflets are structurally normal. No aortic valve regurgitation. There is no aortic stenosis. Tricuspid Valve: Tricuspid valve leaflets are normal in appearance and function. Trivial tricuspid regurgitation. Right Ventricular systolic pressure is measured at 27 mmHg. Pulmonary artery pressure normal. Aorta: The aorta is normal. The aortic root size in M-mode measures 2.5 cm. Aorta Measurements AoRoot, MM is 2.5 cm. Pericardium: A small pericardial effusion was identified. There is no evidence of hemodynamic compromise. Echo findings are not consistent with tamponade physiology. Exam Details Procedure Ordered: Echo Procedure Status: Routine study Image Quality: Adequate Patient: LUIS COLINDRES Study Date: 01/07/2019 Page 2 of 3 09:31 AM Facility Location: Cardiac Echo 1 (No Signature Object) Patient: LUIS COLINDRES Study Date: 01/07/2019 Page 3 of 3 09:31 AM [id number]
--- NOTE | 2019-01-07 13:43 | ASMTCMCOM ---
DAPHNE Note DAPHNE Note Notes: Pt is a 18 y/o female admitted for a right pneumothorax. Pt currently is on a vent. CM spoke w/ pts family friend Anil on the phone. She lives in [place]. CM provided Anil w/ a letter from the doctor stating that pt is in the ICU and it would be great if pts parents can come to [place] to be w/ their daughter. Pts parents will bring letter to the consulate tomorrow. The consulate is closed today in [place] due to a holiday. Date Signed: 01/07/2019 01:42 PM Electronically Signed By:AZ Ye
--- NOTE | 2019-01-07 14:03 | SOAPPROG ---
SOAP Progress Note Assessment/Plan: Assessment: 18 year old with tension pneumothorax who then developed re-expansion pulmonary edema. Required mechanical ventilation Had cough prior Some question if any aspiration CT with pneumonia Continue ICU support and wean vent and extubate as criteria is met May need VATS ? bleb S: Intubated and sedated Plan: 01/07/19 14:02 01/07/19 14:03 01/07/19 14:05 Objective: Vital Signs Temp Pulse Resp BP Pulse Ox 38.3 C 110 H 18 99/72 L 100 01/07/19 13:58 01/07/19 13:58 01/07/19 13:58 01/07/19 13:58 01/07/19 13:58 01/06/19 01/07/19 01/08/19 05:59 05:59 05:59 Output Total 550 Balance -550 Physical Exam - Physical Exam General Appearance: WD/WN, no apparent distress, unresponsive EENT: ET tube, other (appears comfortable intubated and sedated) Respiratory: other (coarse) Cardiac/Chest: regular rate, rhythm, other (chest tube in place with serous fluid) Abdomen: normal bowel sounds, non-tender ICD10 Worksheet Patient Problems: Problems Problem Status Onset Encounter for chest tube placement Acute Pneumothorax, right Acute Pulmonary edema Acute Tension pneumothorax Acute
--- NOTE | 2019-01-07 16:38 | HOSPPROG ---
Hospitalist Progress Note Assessment/Plan: * Right tension pneumothorax -s/p chest tube * Acute respiratory failure -right lung infiltrate - aspiration vs. re-expansion pulmonary edema -Dr. Naranjo discontinued antibiotics * Shock - was briefly on pressors - BP now stable * Fever - possible sepsis -off antibiotics as above Subjective: events noted Objective: Vital Signs Temp Pulse Resp BP Pulse Ox 38.4 C H 106 H 18 100/61 100 01/07/19 16:00 01/07/19 16:00 01/07/19 16:00 01/07/19 16:00 01/07/19 16:00 01/06/19 01/07/19 01/08/19 05:59 05:59 05:59 Output Total 550 Balance -550 CTA chest - no PE, possible PNA CXR viewed, my personal interpretation is - significant right infiltrate Laboratory Tests 01/06/19 01/07/19 01/07/19 11:35 01:20 05:00 WBC 12.82 H 32.19 H 28.72 H VBG Lactic Acid 01/07/19 06:10 WBC VBG Lactic Acid 1.2 - Physical Exam Constitutional: no apparent distress, appears nourished, not in pain Cardiovascular: regular rate and rhythym, no murmur, rub, or gallop Respiratory: no respiratory distress, no rales or rhonchi, clear to auscultation Gastrointestinal: normoactive bowel sounds, soft, non-tender abdomen, no palpable masses Skin: no rashes or abrasions, no fluctuance, no induration Psychiatric: encephalopathic, other (intubated and sedated on vent), No interacting appropriately ICD10 Worksheet Patient Problems: Problems Problem Status Onset Encounter for chest tube placement Acute Pneumothorax, right Acute Pulmonary edema Acute Tension pneumothorax Acute
[2019-01-07] MEDS: fentaNYL/NACL 100 ML IV SCH (20:29)
[2019-01-08 05:13] LABS: PLATELET COUNT 212 10^3/uL (150-400)
[2019-01-08] MEDS: CHLORHEXIDINE GLUCONATE 15 ML UDL PO SCH (07:58)
[2019-01-08] MEDS: ENOXAPARIN 40 MG/0.4 ML SYR SC SCH (08:03)
[2019-01-08] MEDS: FAMOTIDINE 20 MG/NACL 50 ML IV SCH ×2 (08:03→21:32)
[2019-01-08] MEDS ORDERED: PROTOCOL POTASSIUM 1 DOSE MISC PRN (09:08)
[2019-01-08] MEDS: POTASSIUM Cl (KCl) 50 ML IV SCH ×6 (09:18→18:36)
--- NOTE | 2019-01-08 09:18 | SOAPPROG ---
SOAP Progress Note Assessment/Plan: Assessment/Plan: 18 year old with tension pneumothorax who then developed re- expansion pulmonary edema. Required mechanical ventilation. Self-extubated this am. Had cough prior, some question of aspiration CT with pneumonia Appreciate hospitalists and intensivists May need VATS ? bleb - we will continue to follow S: Still sedated - does not wake for exam O: Laying in bed, comfortable, NAD Tachycardic Not tachypneic. Clear anteriorly Chest tube serosanguinous output. No air leak at rest Jackson clear yellow urine Objective: Vital Signs Temp Pulse Resp BP Pulse Ox 37.5 C 93 19 105/57 L 99 01/08/19 09:00 01/08/19 09:00 01/08/19 09:00 01/08/19 09:00 01/08/19 09:00 Laboratory Results 01/08/19 05:00 01/08/19 05:00 01/07/19 01/08/19 01/09/19 05:59 05:59 05:59 Intake Total 790.8 50 Output Total 2585 Balance -1794.2 50 ICD10 Worksheet Patient Problems: Problems Problem Status Onset Encounter for chest tube placement Acute Pneumothorax, right Acute Pulmonary edema Acute Tension pneumothorax Acute
[2019-01-08] MEDS ORDERED: POTASSIUM Cl (KCl) 20 MEQ in 1/2 NS 1,000 ML IV SCH (15:30)
--- NOTE | 2019-01-08 16:13 | PDINTPN ---
Dyer Assistant Progress Note Assessment/Plan: 18 F [employer] [facility] admitted 01/06/19 with cough and dyspnea found to have complete tension PTX on CXR. Chest tube placed with excellent re-expansion, but she quickly developed re-expansion pulmonary edema with acute compromise and required intubation. Subsequent hypotension also occurred but this resolved rapidly. There was an apparent aspiration event noted in the ED as well. She was sedated with ketamine and fentanyl overnight, but self extubated the morning of 01/08. * Acute respiratory failure - I suspect pulmonary edema far greater than aspiration as her wbc continues to fall in absence of antibiotics. Her PCT of 1.2 is still <2 so I would continue to hold abx for now and recheck wbc in am. * PTX- she is currently unable to give historical details but appears to be spontaneous. I would hold off on VATS until further clarification is possible. Daily CXR. Continue to use oxygen even if sats 100% to promote absorption. Todays CXR done while still on vent. Continue wall suction. * Altered mental status likely related to meds. Avoid benzos * * critical care time 35 minutes * Subjective: self-extubated this am Objective: Vital Signs Temp Pulse Resp BP Pulse Ox 37.2 C 86 18 100/60 100 01/08/19 14:00 01/08/19 14:00 01/08/19 14:00 01/08/19 14:00 01/08/19 14:00 Laboratory Results 01/08/19 05:00 01/08/19 05:00 01/07/19 01/08/19 01/09/19 05:59 05:59 05:59 Intake Total 790.8 320 Output Total 2585 Balance -1794.2 320 Physical Exam - Physical Exam General Appearance: no apparent distress, obtunded, thin EENT: PERRL/EOMI Neck: supple Respiratory: lungs clear, normal breath sounds, decreased breath sounds, No respiratory distress, No accessory muscle use Cardiac/Chest: regular rate, rhythm, No edema Abdomen: non-tender, soft, No distended Skin: normal color, warm/dry, No cyanosis Lymphatic: no adenopathy Extremities: No pedal edema Neuro/Psych: cognition abnormalities, No abnormal air brakes inspector II-XII ICD10 Worksheet Patient Problems: Problems Problem Status Onset Encounter for chest tube placement Acute Pneumothorax, right Acute Pulmonary edema Acute Tension pneumothorax Acute
--- NOTE | 2019-01-08 17:15 | HOSPPROG ---
Hospitalist Progress Note Assessment/Plan: * Right tension pneumothorax -s/p chest tube -persistent PTX on CXR - continue O2 for re-absorption * Acute respiratory failure -self-extubated this am - seems to be doing okay * Re-expansion pulmonary edema - aspiration PNA less likely -continue to watch off antibiotics * Shock - was briefly on pressors - BP now stable * Fever - possible sepsis -off antibiotics as above * Toxic encephalopathy -remains extremely sedated, still NPO as not awake enough to eat Subjective: self extubated this am Objective: Vital Signs Temp Pulse Resp BP Pulse Ox 37.2 C 89 20 107/63 100 01/08/19 16:00 01/08/19 16:00 01/08/19 16:00 01/08/19 16:00 01/08/19 16:00 Laboratory Results 01/08/19 05:00 01/08/19 16:30 01/07/19 01/08/19 01/09/19 05:59 05:59 05:59 Intake Total 790.8 500 Output Total 2585 355 Balance -1794.2 145 d/w Dr. eagle regarding antibiotic plan CXR viewed, my personal interpretation is - improving infiltrate, small PTX - Physical Exam Constitutional: no apparent distress, appears nourished, not in pain Cardiovascular: regular rate and rhythym, no murmur, rub, or gallop Respiratory: no respiratory distress, no rales or rhonchi, clear to auscultation Gastrointestinal: normoactive bowel sounds, soft, non-tender abdomen, no palpable masses Skin: no rashes or abrasions, no fluctuance, no induration Neurologic: No AAOx3, No sensation intact bilaterally Psychiatric: encephalopathic, poor insight, poor judgement, poor memory, No interacting appropriately, No agitated ICD10 Worksheet Patient Problems: Problems Problem Status Onset Pneumothorax, right Acute Encounter for chest tube placement Acute Tension pneumothorax Acute Pulmonary edema Acute
[2019-01-08] MEDS: IBUPROFEN 600 MG TAB PO PRN (22:20)
[2019-01-08] MEDS: guaiFENesin 200 MG/10 ML UDL PO PRN (22:20)
[2019-01-09 04:48] LABS: PLATELET COUNT 189 10^3/uL (150-400)
[2019-01-09] MEDS: IBUPROFEN 600 MG TAB PO PRN ×2 (06:37→18:06)
[2019-01-09] MEDS: guaiFENesin 200 MG/10 ML UDL PO PRN (06:37)
[2019-01-09] MEDS ORDERED: POTASSIUM CL 10 MEQ TAB PO ONE (07:17)
[2019-01-09] MEDS: ENOXAPARIN 40 MG/0.4 ML SYR SC SCH (08:16)
[2019-01-09] MEDS ORDERED: ACETAMINOPHEN 325 MG TAB PO PRN (08:28)
[2019-01-09] MEDS ORDERED: FAMOTIDINE 20 MG TAB PO SCH (09:00)
--- NOTE | 2019-01-09 13:35 | PDINTPN ---
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 Chest tube placed with excellent re-expansion, but she quickly developed re-expansion pulmonary edema with acute compromise and required intubation. Subsequent hypotension also occurred but this resolved rapidly. There was an apparent aspiration event noted in the ED as well. She was sedated with ketamine and fentanyl overnight, but self extubated the morning of 01/08. * Acute respiratory failure with hypoxia likely from re-expansion pulmonary edema. -s/p ETT x 48 hours. Afebrile and continued drop in wbc. * PTX- Likely spontaneous. I would hold off on VATS until further clarification is possible. Daily CXR. Continue to use oxygen even if sats 100% to promote absorption. Her CT may have been kinked as there was no air leak yesterday but there is today, which would explain slight increase in PTX. Continue with suction today and monitor. No new CT needed. * Altered mental status likely related to meds. Improved. Avoid benzos. * * Subjective: stable overnight. c/o pleuritic CP bu t declined increased pain meds Objective: Vital Signs Temp Pulse Resp BP Pulse Ox 37.3 C 83 26 H 109/74 99 01/09/19 00:00 01/09/19 10:00 01/09/19 10:00 01/09/19 10:00 01/09/19 10:00 Laboratory Results 01/09/19 04:35 01/09/19 04:35 01/08/19 01/09/19 01/10/19 05:59 05:59 05:59 Intake Total 790.8 2029 Output Total 2585 1020 Balance -1794.2 1009 Physical Exam - Physical Exam General Appearance: alert, no apparent distress EENT: PERRL/EOMI Neck: supple Respiratory: lungs clear, normal breath sounds, decreased breath sounds, No respiratory distress, No accessory muscle use, No pleural rub Cardiac/Chest: regular rate, rhythm, No edema Abdomen: non-tender, soft, No distended Skin: normal color, warm/dry, No cyanosis Lymphatic: no adenopathy Extremities: No pedal edema Neuro/Psych: alert, normal mood/affect, oriented x 3 ICD10 Worksheet Patient Problems: Problems Problem Status Onset Encounter for chest tube placement Acute Pneumothorax, right Acute Pulmonary edema Acute Tension pneumothorax Acute
--- NOTE | 2019-01-09 14:40 | SOAPPROG ---
SOAP Progress Note Assessment/Plan: Assessment: 18 year old with tension pneumothorax who then developed re-expansion pulmonary edema. Required mechanical ventilation Had cough prior Some question if any aspiration CT with pneumonia Self-extubated AM of 01/08 Continue ICU support May need VATS ? bleb Chest tube with new air leak, possibly contributing to slight increase (?) of pneumothorax (vs positioning on CXR). Discussed with nursing scheduler, planned to attempt flushing tube, watch & wait if improvement. Recommend new apical tube if not major improvement S: Reports appropriate R-sided pain General: Drowsy, difficulty keeping eyelids open during conversation. HENT: atraumatic, normocephalic, pupils round and equal. No scleral icterus Respiratory: Diminished breath sounds R apex; diffuse crackles bilaterally CV: RRR, no M/R/G Plan: 01/07/19 14:02 01/07/19 14:03 01/07/19 14:05 01/09/19 14:30 01/10/19 07:31 Objective: Vital Signs Temp Pulse Resp BP Pulse Ox 37.3 C 83 26 H 109/74 99 01/09/19 00:00 01/09/19 10:00 01/09/19 10:00 01/09/19 10:00 01/09/19 10:00 Laboratory Results 01/09/19 04:35 01/09/19 04:35 01/08/19 01/09/19 01/10/19 05:59 05:59 05:59 Intake Total 790.8 2029 Output Total 2585 1020 Balance -1794.2 1009 ICD10 Worksheet Patient Problems: Problems Problem Status Onset Encounter for chest tube placement Acute Pneumothorax, right Acute Pulmonary edema Acute Tension pneumothorax Acute
--- NOTE | 2019-01-09 16:31 | HOSPPROG ---
Hospitalist Progress Note Assessment/Plan: * Right tension pneumothorax -s/p chest tube -persistent air leak - continue chest tube * Acute respiratory failure -s/p self-extubation * Re-expansion pulmonary edema - aspiration PNA less likely -continue to watch off antibiotics * Shock - was briefly on pressors - BP now stable * Fever - possible sepsis -off antibiotics as above * Toxic encephalopathy -improving Subjective: no complaints. Objective: Vital Signs Temp Pulse Resp BP Pulse Ox 36.8 C 80 20 94/62 L 97 01/09/19 15:44 01/09/19 15:44 01/09/19 15:44 01/09/19 15:44 01/09/19 15:44 Laboratory Results 01/09/19 04:35 01/09/19 04:35 01/08/19 01/09/19 01/10/19 05:59 05:59 05:59 Intake Total 790.8 2029 450 Output Total 2585 1020 Balance -1794.2 1009 450 d/w Dr. Hutchinson regarding PTX CXR - increased PTX, continue infiltrate - Physical Exam Constitutional: no apparent distress, appears nourished, not in pain Cardiovascular: regular rate and rhythym, no murmur, rub, or gallop Respiratory: no respiratory distress, no rales or rhonchi, clear to auscultation Gastrointestinal: normoactive bowel sounds, soft, non-tender abdomen, no palpable masses Skin: no rashes or abrasions, no fluctuance, no induration Psychiatric: encephalopathic, flat affect, other (still very slow to respond but greatly improved), No interacting appropriately, No anxious, No agitated ICD10 Worksheet Patient Problems: Problems Problem Status Onset Pneumothorax, right Acute Encounter for chest tube placement Acute Tension pneumothorax Acute Pulmonary edema Acute
--- NOTE | 2019-01-09 16:40 | ASMTCMCOM ---
CM Note CM Note Notes: Pt is no longer intubated. Continues to be deconditioned. PT/OT working with her. At this time OT is recommending Inpatient rehab; PT recommending Home but says they will continue to assess as pt progresses. Plan: TBD Date Signed: 01/09/2019 04:39 PM Electronically Signed By:AZ Diehl
[2019-01-09] MEDS ORDERED: KETOROLAC 15 MG/1 ML SDV IVP PRN (18:17)
[2019-01-10] MEDS: guaiFENesin 200 MG/10 ML UDL PO PRN (00:47)
[2019-01-10] MEDS: IBUPROFEN 600 MG TAB PO PRN (00:47)
[2019-01-10] MEDS ORDERED: guaiFENesin/CODEINE PHOS 10 ML UDCUP PO PRN (02:45)
[2019-01-10 05:25] LABS: PLATELET COUNT 211 10^3/uL (150-400)
[2019-01-10] MEDS ORDERED: POTASSIUM CL 10 MEQ TAB PO ONE ×2 (08:05→21:46)
--- NOTE | 2019-01-10 09:08 | SOAPPROG ---
SOAP Progress Note Assessment/Plan: Assessment: 18 year old with tension pneumothorax who then developed re-expansion pulmonary edema. Required mechanical ventilation Had cough prior Some question if any aspiration CT with pneumonia Self-extubated AM of 01/08 [address]able on [address] Continued air leak - may need VATS - CXR stable S: Reports appropriate R-sided pain General: Drowsy, difficulty keeping eyelids open during conversation. - better today HENT: atraumatic, normocephalic, pupils round and equal. No scleral icterus Respiratory: Diminished breath sounds R apex; diffuse crackles bilaterally CV: RRR, no M/R/G Chest tube with air leak Plan: 01/07/19 14:02 01/07/19 14:03 01/07/19 14:05 01/09/19 14:30 01/10/19 07:31 01/10/19 09:06 Objective: Vital Signs Temp Pulse Resp BP Pulse Ox 37.1 C 83 16 107/67 100 01/10/19 08:23 01/10/19 08:23 01/10/19 08:23 01/10/19 08:23 01/10/19 08:23 Laboratory Results 01/10/19 05:18 01/10/19 05:18 01/09/19 01/10/19 01/11/19 05:59 05:59 05:59 Intake Total 2028 700 Output Total 1020 1580 400 Balance 1009 -880 -400 ICD10 Worksheet Patient Problems: Problems Problem Status Onset Encounter for chest tube placement Acute Hypotension Acute Hypoxia Acute Pneumothorax, right Acute Pulmonary edema Acute Tension pneumothorax Acute
[2019-01-10] MEDS: ENOXAPARIN 40 MG/0.4 ML SYR SC SCH (10:10)
--- NOTE | 2019-01-10 11:14 | HOSPPROG ---
Hospitalist Progress Note Assessment/Plan: 18 F [employer] student admitted 01/06/19 with cough and dyspnea found to have complete tension PTX on CXR. Chest tube placed with excellent re-expansion, but she quickly developed re-expansion pulmonary edema with acute compromise and required intubation. Subsequent hypotension also occurred.There was an apparent aspiration event noted in the ED. She was sedated with ketamine and fentanyl overnight, but self extubated the morning of 01/08. * Right tension pneumothorax -s/p chest tube -persistent air leak - continue chest tube * Acute respiratory failure -s/p self-extubation * Re-expansion pulmonary edema - aspiration PNA less likely -continue to watch off antibiotics * Shock - was briefly on pressors - BP now stable * Fever - possible sepsis -off antibiotics as above * Toxic encephalopathy -improving *Dispo -unclear -cont supportive care First encounter, chart reviewed. Subjective: Feeling ok. Still having pain. Still coughing. Objective: Vital Signs Temp Pulse Resp BP Pulse Ox 37.1 C 83 16 107/67 100 01/10/19 08:23 01/10/19 08:23 01/10/19 08:23 01/10/19 08:23 01/10/19 08:23 Laboratory Results 01/10/19 05:18 01/10/19 05:18 01/09/19 01/10/19 01/11/19 05:59 05:59 05:59 Intake Total 2028 700 Output Total 1020 1580 400 Balance 1009 -880 -400 - Physical Exam Constitutional: appears nourished, uncomfortable, No obese Eyes: PERRL, anicteric sclera, EOMI Ears, Nose, Mouth, Throat: moist mucous membranes, hearing normal, ears appear normal Cardiovascular: regular rate and rhythym, No JVD, No edema Respiratory: no respiratory distress, no rales or rhonchi, reduced air movement Gastrointestinal: normoactive bowel sounds, No tenderness, No ascites Skin: warm, normal color, No mottled Musculoskeletal: normal joint ROM, no joint effusions, generalized weakness Neurologic: AAOx3 Psychiatric: not encephalopathic, thought process linear, poor insight ICD10 Worksheet Patient Problems: Problems Problem Status Onset Pneumothorax, right Acute Encounter for chest tube placement Acute Tension pneumothorax Acute Pulmonary edema Acute Hypoxia Acute Hypotension Acute
--- NOTE | 2019-01-10 14:15 | PDINTPN ---
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 Chest tube placed with excellent re-expansion, but she quickly developed re-expansion pulmonary edema with acute compromise and required intubation. Subsequent hypotension also occurred but this resolved rapidly. There was an apparent aspiration event noted in the ED as well. She was sedated with ketamine and fentanyl overnight, but self extubated the morning of 01/08. * Acute respiratory failure with hypoxia likely from re-expansion pulmonary edema. -s/p ETT x 48 hours. Afebrile and continued drop in wbc. * PTX- Likely spontaneous, though I have not asked her about accupuncture or "cupping" which could have occurred while in [place]. She has persistent air leak and incomplete resolution. I discussed her case with her aunt in [place], who will translate for parents in [place] (they are having difficulty obtaining Vis[place]) . I would hold off on VATS until further clarification is possible. Daily CXR. Continue to use oxygen even if sats 100% to promote absorption. * Altered mental status likely related to meds. Continues to improve * hypotension post intubation- improved. * 01/10/19 14:12 Subjective: feels better Objective: Vital Signs Temp Pulse Resp BP Pulse Ox 37.1 C 84 18 106/59 L 98 01/10/19 11:36 01/10/19 11:36 01/10/19 11:36 01/10/19 11:36 01/10/19 11:36 Laboratory Results 01/10/19 05:18 01/10/19 05:18 01/09/19 01/10/19 01/11/19 05:59 05:59 05:59 Intake Total 2028 700 Output Total 1020 1580 900 Balance 1009 -880 -900 Physical Exam - Physical Exam General Appearance: alert, no apparent distress EENT: PERRL/EOMI Neck: supple Respiratory: lungs clear, normal breath sounds, No respiratory distress, No accessory muscle use Cardiac/Chest: regular rate, rhythm, No edema Abdomen: non-tender, No soft, No distended Skin: normal color, warm/dry, No cyanosis Lymphatic: no adenopathy Extremities: No pedal edema Neuro/Psych: alert, normal mood/affect, oriented x 3 ICD10 Worksheet Patient Problems: Problems Problem Status Onset Encounter for chest tube placement Acute Hypotension Acute Hypoxia Acute Pneumothorax, right Acute Pulmonary edema Acute Tension pneumothorax Acute
--- NOTE | 2019-01-10 16:32 | SOAPPROG ---
SOAP Progress Note Assessment/Plan: Assessment: 18 year old with tension pneumothorax who then developed re-expansion pulmonary edema. Required mechanical ventilation Had cough prior Some question if any aspiration CT with pneumonia Self-extubated AM of 01/08 Continued air leak - I reviewed all of her imaging and think she has blebs on her CTA. 1) Can CT chest to see if in same position establishing blebs (apices to arch) 2) IR directed exchange of chest tube 3) VATS I think CT will help better define her course S: Reports appropriate R-sided pain General: Drowsy, difficulty keeping eyelids open during conversation. - better today HENT: atraumatic, normocephalic, pupils round and equal. No scleral icterus Respiratory: Diminished breath sounds R apex; diffuse crackles bilaterally CV: RRR, no M/R/G Chest tube with air leak Plan: 01/07/19 14:02 01/07/19 14:03 01/07/19 14:05 01/09/19 14:30 01/10/19 07:31 01/10/19 09:06 01/10/19 16:30 Objective: Vital Signs Temp Pulse Resp BP Pulse Ox 37.1 C 84 18 106/59 L 98 01/10/19 11:36 01/10/19 11:36 01/10/19 11:36 01/10/19 11:36 01/10/19 11:36 Laboratory Results 01/10/19 05:18 01/10/19 05:18 01/09/19 01/10/19 01/11/19 05:59 05:59 05:59 Intake Total 2028 Output Total 1020 1580 900 Balance 1009 -880 -900 ICD10 Worksheet Patient Problems: Problems Problem Status Onset Encounter for chest tube placement Acute Hypotension Acute Hypoxia Acute Pneumothorax, right Acute Pulmonary edema Acute Tension pneumothorax Acute
[2019-01-10] MEDS ORDERED: POTASSIUM CL 20 MEQ PKT PO ONE (22:30)
[2019-01-11] MEDS ORDERED: POTASSIUM CL 10 MEQ TAB PO ONE (08:21)
--- NOTE | 2019-01-11 08:25 | SOAPPROG ---
SOAP Progress Note Assessment/Plan: Assessment: 18 year old with tension pneumothorax who then developed re-expansion pulmonary edema. Required mechanical ventilation Self-extubated AM of 01/08 Had cough prior Some question if any aspiration CT with pneumonia - no growth on respiratory panel - Blood culture with gram positive vi that resulted today Repeat limited CT with increased pneumothorax. Likely bleb (some are smaller). Awaiting CXR this am to see if suction improved pneumothorax I recommend R Vats with apical segmentectomy and pleurodesis. I do not think this will improve with chest tube alone. Spoke with family and they are trying to get VISA and flights here. Prefer to wait for surgery unless emergent. Understand that she is not improving but stable. Understand that if condition changes, that we would call again and re- visit idea. Understand that chest tube may need to be upsized. Offered sweatband separator but patient prefers family friend, did 3 way phone call with patient, parents and friend S: Reports appropriate R-sided pain - still coughing, sore throat General: Much more alert today HENT: atraumatic, normocephalic, pupils round and equal. No scleral icterus Respiratory: Diminished breath sounds R apex; crackles improved CV: RRR, no M/R/G Chest tube with air leak Plan: 01/07/19 14:02 01/07/19 14:03 01/07/19 14:05 01/09/19 14:30 01/10/19 07:31 01/10/19 09:06 01/10/19 16:30 01/11/19 08:17 Objective: Vital Signs Temp Pulse Resp BP Pulse Ox 37.1 C 96 14 101/58 L 100 01/11/19 04:00 01/11/19 04:00 01/11/19 04:00 01/11/19 04:00 01/11/19 04:00 Laboratory Results 01/10/19 05:18 01/11/19 05:17 01/10/19 01/11/19 01/12/19 05:59 05:59 05:59 Intake Total 700 600 Output Total 8535 7430 Balance -880 -4660 ICD10 Worksheet Patient Problems: Problems Problem Status Onset Encounter for chest tube placement Acute Hypotension Acute Hypoxia Acute Pneumothorax, right Acute Pulmonary edema Acute Tension pneumothorax Acute
--- NOTE | 2019-01-11 08:54 | HOSPPROG ---
Hospitalist Progress Note Assessment/Plan: 18 F [employer] admitted 01/06/19 with cough and dyspnea found to have complete tension PTX on CXR. Chest tube placed with excellent re-expansion, but she quickly developed re-expansion pulmonary edema with acute compromise and required intubation. Subsequent hypotension also occurred.There was an apparent aspiration event noted in the ED. She was sedated with ketamine and fentanyl overnight, but self extubated the morning of 01/08. First encounter, chart reviewed. Reviewed her care w Dr Wesley and Dr Cheung. * Right tension pneumothorax -CT in place -air leak noted -may need a VATS or pleurodesis * Acute respiratory failure -self extubated -O2 levels on 2 liters stable *positive blood cx -reviewed findings w micro,nothing detected -will ask ID to weigh in * Re-expansion pulmonary edema - aspiration PNA less likely * Shock -had been treated w pressors * Fever -none recently * Toxic encephalopathy -resolved *plan: per patient, her family has requested tx to [facility] (they live in [place]). Dr Wesley will try and meet kelli Noyola and her family again today. Subjective: Jazmín is feeling better, eating, has no complaints. Objective: Vital Signs Temp Pulse Resp BP Pulse Ox 36.8 C 79 14 99/55 L 98 01/11/19 08:00 01/11/19 08:00 01/11/19 08:00 01/11/19 08:00 01/11/19 08:00 Laboratory Results 01/10/19 05:18 01/11/19 05:17 01/10/19 01/11/19 01/12/19 05:59 05:59 05:59 Intake Total 700 600 Output Total 1580 2240 Balance -880 -1640 - Physical Exam Constitutional: other (thin) Eyes: PERRL Ears, Nose, Mouth, Throat: hearing normal Cardiovascular: regular rate and rhythym Respiratory: other (poor breath sounds noted through out her right lung, CT with air leak) Skin: warm Musculoskeletal: generalized weakness Neurologic: AAOx3 Psychiatric: interacting appropriately ICD10 Worksheet Patient Problems: Problems Problem Status Onset Encounter for chest tube placement Acute Hypotension Acute Hypoxia Acute Pneumothorax, right Acute Pulmonary edema Acute Tension pneumothorax Acute
[2019-01-11] MEDS: ENOXAPARIN 40 MG/0.4 ML SYR SC SCH (09:02)
[2019-01-11] MEDS ORDERED: POTASSIUM CL 20 MEQ/15 ML UDCUP PO ONE (09:15)
--- NOTE | 2019-01-11 13:22 | PDINTPN ---
Communication Professor Progress Note Assessment/Plan: 18 F [employer] student admitted 01/06/19 with cough and dyspnea found to have complete tension PTX on CXR. Chest tube placed with excellent re-expansion, but she quickly developed re-expansion pulmonary edema with acute compromise and required intubation. Subsequent hypotension also occurred but this resolved rapidly. There was an apparent aspiration event noted in the ED as well. She was sedated with ketamine and fentanyl overnight, but self extubated the morning of 01/08. * Acute respiratory failure with hypoxia likely from re-expansion pulmonary edema. -s/p ETT x 48 hours. Afebrile and continued drop in wbc. * PTX- Likely spontaneous, though I have not asked her about accupuncture or "cupping" which could have occurred while in [place]. She has persistent air leak and incomplete resolution. I discussed her case with her aunt in [place], who will translate for parents in [place] (they are having difficulty obtaining Visas) . Continue to use oxygen even if sats 100% to promote absorption. chest tube in appropriate position based on CT (taken off suction with near resolution with return to suction) but air leak remains. Agree that VATS may be best option at this point. Waiting forparents to arrive. * Altered mental status likely related to meds. Continues to improve/resolved * hypotension post intubation- resolved * Bcx with GPR from 01/06, now just positive 01/11- presumed contaminant at this point but ID consult pending. * * * 01/10/19 14:12 01/11/19 13:17 Subjective: feels well; no complaints Objective: Vital Signs Temp Pulse Resp BP Pulse Ox 36.9 C 89 16 98/55 L 99 01/11/19 11:54 01/11/19 11:54 01/11/19 11:54 01/11/19 11:54 01/11/19 11:54 Laboratory Results 01/10/19 05:18 01/11/19 05:17 01/10/19 01/11/19 01/12/19 05:59 05:59 05:59 Intake Total 700 600 Output Total 1580 2240 Balance -880 -1640 Physical Exam - Physical Exam General Appearance: alert, no apparent distress EENT: PERRL/EOMI Neck: supple Respiratory: lungs clear, normal breath sounds, decreased breath sounds, No respiratory distress, No accessory muscle use Cardiac/Chest: regular rate, rhythm, No edema Abdomen: non-tender, soft, No distended Skin: normal color, warm/dry, No cyanosis Lymphatic: no adenopathy Extremities: No pedal edema Neuro/Psych: alert, normal mood/affect, oriented x 3 ICD10 Worksheet Patient Problems: Problems Problem Status Onset Encounter for chest tube placement Acute Hypotension Acute Hypoxia Acute Pneumothorax, right Acute Pulmonary edema Acute Tension pneumothorax Acute
--- NOTE | 2019-01-11 13:43 | PDCONSULT ---
Report Checker Note: Infectious Diseases Consult Note Impression: 18-year-old woman with spontaneous pneumothorax on the right that progressed to tension pneumothorax over the course of 2-3 weeks. She had no infectious prodrome leading up to her presentation, fevers at presentation may have simply represented acute stress response and resultant inflammatory in flux into the right lung after re-expansion. She may well be a candidate for treatment of latent tuberculosis but her presentation is not concerning for active pulmonary tuberculosis. Do not think systemic antimicrobials are warranted at this juncture. Positive blood cultures likely to be bacillus cereus or Cutibacterium (Propionibacterium) acnes and with time from the blood cultures being drawn until positivity is consistent with a contaminant. 1. Right-sided spontaneous tension pneumothorax; likely rupture of bleb 2. Diffuse ground-glass opacities in the right lung, likely represents re- expansion pulmonary edema and resolving inflammation 3. 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 Would not start any antibiotics at this point 2. Unlikely her pneumothorax was precipitated by an infectious cause 3. Will evaluate further and determine if she requires treatment for latent tuberculosis; do not suspect active tuberculosis 4. Infectious Diseases will follow Gibson Cheung MD Infectious Diseases Chief Complaint: Back pain and night sweats Requesting Provider: Kusum Rodrigues Reason for Referral: Consultation was requested by Kusum Rodrigues regarding antimicrobial management. HPI: 18-year-old woman who presented to the hospital with a 2 to three-week progressive illness starting as midthoracic back pain while on holiday in [facility] on 12/23/2018 that progressed to cough and shortness of breath and resolution of back pain; found to have tension pneumothorax on presentation to the emergency department. After chest tube placement and re-expansion of the right lung she developed diffuse dense ground-glass opacities on the right and has had a persistent pneumothorax and air leak. She notes no prodrome to suggest an infectious syndrome prior to the onset of back pain. She has had no animal contacts, either pets or wild animals in the weeks to months leading up to her symptom onset. She did visit the [place] [facility] approximately a month prior to her travel to [facility]. She also notes that as a child she was not active in sports, and her parents thought that this was related to a lack of interest, but she does describe becoming short of breath easily and multiple infections in her childhood. She does not remember any specific hospitalization from infections through her primary school days, with resolution of infections while in Primary School. She notes becoming more short of breath than expected when trying to exercise here in [place]. She also notes at no point during her illness any rash, myalgias, arthralgias. Overall she is feeling improved and breathing more comfortably although still requiring oxygen. Surgical recommendation is to undergo a VATS procedure with possible pleurodesis to resolved a persistent pneumothorax. She had a blood culture turned positive this morning from a culture initially taken on 01/06. Chronology of Present Illness: Most recent date identified as normal health: Approximately 12/22/18 Location of symptoms: Initially back pain follow-up by cough and shortness of breath Onset of symptoms: Approximately 12/23/2018 while on holiday in [facility] Initial signs/symptoms: Mid thoracic back pain that became progressively worse Associated signs/symptoms at onset: Periodic night sweats but no fevers, chills , weight loss, rash, arthralgias, myalgias Changes since onset: Back pain resolved after she returned to [place] on approximately 12/25/18 and was replaced by more prominent cough and shortness of breath and generally feeling poor in off that she had friends bring her back food to eat instead of going on herself Exacerbating factors: Minimal exertion Relieving factors: Rest with symptoms persisted even at rest Antibiotics since symptom onset: No outpatient antibiotics; single dose of vancomycin on 01/07 and a single dose of piperacillin/tazobactam on 01/07 Change in symptoms with antibiotics: None appreciated Relevant social history: Has never been sexually active Relevant PMHx/PSHx: No history of asthma or other pulmonary disease Reviewed patient medical records in [facility], [place], and [facility] Information [facility] ([facility] Travel history: [facility] between 12/22/2018 and 12/25/2018; [place]; last travel back to [place] was over the winter break from college at Past Medical History: Positive PPD Past Surgical History: Right-sided pleural catheter drain placement 01/06/18 Social History: Does not use tobacco products; Does not consume marijuana products; no alcohol use; Does not use any other drugs currently or in the past ; has never been sexually active Family History: No family members with recurrent infections Allergies: No known antibiotic allergies Medications: Reviewed in medical record. ROS: 10 organ systems reviewed; pertinent positives and negatives listed in the HPI, all other organ systems negative. Physical Exam: VS: Reviewed Gen: No acute distress; Breathing comfortably with supplemental oxygen via nasal cannula; Able to speak in complete sentences Eyes: No conjunctival injection; No scleral icterus HENT: No gross deformities Neck: No limitation in range of motion Pulm: Audible inspiratory sounds to the bases bilaterally; rhonchorous breath sounds on the right, no wheeze CV: Normal S1 and S2; Regular rate and rhythm; No murmurs, rubs, or gallops; No lower extremity edema Abd: Not distended; Normo-active bowel sounds; Soft; Non-tender Skin: A full skin exam including exposed bilateral upper extremities, bilateral lower extremities to the knees, face, neck, abdomen, chest, and back performed; Skin intact, warm, with no rash MSK: Joints without erythema or edema; No gross limitation in range of motion Ext: No clubbing or cyanosis Neuro: Awake and alert Psych: Normal mood and blunted affect Labs/Imaging: All microbiology testing (culture and non-culture) reviewed in the medical record. Personally reviewed and interpreted the images of the following radiographs: Chest x-ray admission with complete right lung collapse, chest CT showing re- expanded right lung with diffuse interstitial ground-glass opacities, presence of posterior left lower lobe pleural space infiltrates; subsequent chest x-rays revealed persistent pneumothorax particularly at the apex, pleural drain remains in place, persisting diffuse interstitial infiltrates in the right lung. Microbiology 01/06/19 23:15 Blood Blood Panel (PCR) - Final No Organism Detected By Pcr 01/06/19 23:00 Sputum, Induced/Suctioned - Final 01/06/19 23:00 Sputum, Induced/Suctioned Sputum Culture - Final 01/06/19 18:20 Nasal, Sinus - Swab Respiratory Panel (PCR) - Final No Organism Detected By Pcr 01/06/19 23:15 Blood Blood Culture - Preliminary 01/06/19 23:15 Blood Gram Positive Alex 01/06/19 23:15 Blood Blood Culture - Preliminary Laboratory Tests 01/06/19 01/07/19 01/07/19 11:35 01:20 05:00 WBC 12.82 H 32.19 H 28.72 H Hgb 15.5 Plt Count 348 237 242 Absolute Neuts (auto) 7.65 H Creatinine Lactate Dehydrogenase Procalcitonin 0401/08/19 01/08/19 05:00 05:00 08:20 WBC 22.50 H Hgb 11.6 L Plt Count 212 Absolute Neuts (auto) 18.37 H Creatinine Lactate Dehydrogenase 635 H Procalcitonin 1.22 H 01/09/19 01/09/19 01/10/19 04:35 04:35 05:18 WBC 14.67 H Hgb 9.7 L 9.9 L Plt Count 189 211 Absolute Neuts (auto) 10.24 H 4.94 Creatinine 0.6 Lactate Dehydrogenase Procalcitonin Ongoing monitoring for antimicrobial toxicity with: CBC, BMP, interval historical information, and interval physical exam. [id number] time with patient: 69 minutes with >50% of [id number] time spent in counseling, patient education, and coordinating care. Counseling provided included the microbiology of pneumonia, viral causes of pneumonia, tuberculosis , expected time to resolution, natural history without treatment, and side effects of treatment. Also discussed the likelihood that she developed pneumothorax well in [facility] at slowly progressed upon her return to [place] and that is unlikely to represent an underlying infectious cause.
--- NOTE | 2019-01-11 16:24 | ASMTCMCOM ---
CM Note CM Note Notes: Pt continues to improve slowy from tension pnuemothorax. She still has a CT and is on O2. Was unable to work with PT today. Parents are still in process of trying to get visas, Dr Wesley to see pt to discuss VATS procedure and will call parents. DC Plan: TBD Date Signed: 01/11/2019 04:24 PM Electronically Signed By:Oralia Khanna RN
--- NOTE | 2019-01-12 07:33 | SOAPPROG ---
SOAP Progress Note Assessment/Plan: Assessment/plan: 18 year old with tension pneumothorax who then developed re-expansion pulmonary edema. Required mechanical ventilation, self-extubated AM of 01/08 Had cough prior, some question if any aspiration CT with pneumonia - no growth on respiratory panel - Blood culture with gram positive vi that resulted 01/[address] with increased pneumothorax. Likely bleb (some are smaller). Ptx smaller on CXR 01/11 after returned to [facility] Recommend R Vats with apical segmentectomy and pleurodesis - will likely not improve with chest tube alone. Parents wanted transfer to [facility] but do not have [id number] transfer. Pt wants to wait for parents to arrive to make further decisions re transfer vs surgery Seen with Dr. Wesley. Continue inpatient S: Tired, no complaints O: General: Tired, awakens easily but does not readily participate in exam HENT: atraumatic, normocephalic, pupils round and equal. No scleral icterus Respiratory: Improved breath sounds R apex; crackles resolved CV: RRR, no M/R/G Chest tube with air leak - improved R subclavian intact no e/o infection Objective: Vital Signs Temp Pulse Resp BP Pulse Ox 36.4 C 64 16 98/56 L 99 01/12/19 04:00 01/12/19 04:00 01/12/19 04:00 01/12/19 04:00 01/12/19 04:00 Laboratory Results 01/10/19 05:18 01/11/19 17:45 01/11/19 01/12/19 01/13/19 05:59 05:59 05:59 Intake Total 600 Output Total 3170 320 Balance -1640 -320 ICD10 Worksheet Patient Problems: Problems Problem Status Onset Encounter for chest tube placement Acute Hypotension Acute Hypoxia Acute Pneumothorax, right Acute Pulmonary edema Acute Tension pneumothorax Acute
[2019-01-12] MEDS: ENOXAPARIN 40 MG/0.4 ML SYR SC SCH (11:44)
--- NOTE | 2019-01-12 12:07 | HOSPPROG ---
Hospitalist Progress Note Assessment/Plan: 18 F [employer] student admitted 01/06/19 with cough and dyspnea found to have complete tension PTX on CXR. Chest tube placed with excellent re-expansion, but she quickly developed re-expansion pulmonary edema with acute compromise and required intubation. Subsequent hypotension also occurred.There was an apparent aspiration event noted in the ED. She was sedated with ketamine and fentanyl overnight, but self extubated the morning of 01/08. Evaluated patient w Dr Hutchinson * Right tension pneumothorax -CT in place -air leak noted -will need a VATS or pleurodesis * Acute respiratory failure -self extubated -O2 levels on 2 liters stable *positive blood cx -reviewed findings w micro,nothing detected -appreciate ID inpit * Re-expansion pulmonary edema - aspiration PNA less likely * Shock -had been treated w pressors * Fever -none recently * Toxic encephalopathy -resolved *plan: Dr Hutchinson recommended central line by dc; peripheral line to be placed. Patient is waiting for her parents to arrive to discuss possible transfer to [facility]. Will recheck labs in a.m.-has some anemia and slightly elevated LFT's Subjective: Jazmín is feeling ok. Objective: Vital Signs Temp Pulse Resp BP Pulse Ox 36.6 C 94 16 92/62 L 100 01/12/19 12:00 01/12/19 12:00 01/12/19 12:00 01/12/19 12:00 01/12/19 12:00 Laboratory Results 01/10/19 05:18 01/11/19 17:45 01/11/19 01/12/19 01/13/19 05:59 05:59 05:59 Intake Total 600 Output Total 2240 320 Balance -1640 -320 - Physical Exam Constitutional: other (thin) Eyes: PERRL Ears, Nose, Mouth, Throat: hearing normal Cardiovascular: regular rate and rhythym Respiratory: other (decreased breath sounds throughout her right lung, + air leak noted in the pleurovac), No no respiratory distress (she is short of breath w talking) Gastrointestinal: normoactive bowel sounds Skin: warm Musculoskeletal: generalized weakness Neurologic: AAOx3 Psychiatric: interacting appropriately ICD10 Worksheet Patient Problems: Problems Problem Status Onset Encounter for chest tube placement Acute Hypotension Acute Hypoxia Acute Pneumothorax, right Acute Pulmonary edema Acute Tension pneumothorax Acute
--- NOTE | 2019-01-12 14:02 | PDINTPN ---
Front Desk Agent Progress Note Assessment/Plan: 18 F [employer] student admitted 01/06/19 with cough and dyspnea found to have complete tension PTX on CXR. Chest tube placed with excellent re-expansion, but she quickly developed re-expansion pulmonary edema with acute compromise and required intubation. Subsequent hypotension also occurred but this resolved rapidly. There was an apparent aspiration event noted in the ED as well. She was sedated with ketamine and fentanyl overnight, but self extubated the morning of 01/08. * Acute respiratory failure with hypoxia likely from re-expansion pulmonary edema. -s/p ETT x 48 hours. Resolved * PTX- Likely spontaneous. She has persistent air leak and incomplete resolution. I suspect todays CXR looks worse due to incomplete suction with her portable device. Recheck CXR to confirm. Continue to use oxygen even if sats 100% to promote absorption. She is HD#6 without resolution so most would advocate VATS. Her parents arrive tonight to discuss. She mentioned going to [place] (inpatient service at [facility]) which she is entitled to do but I dont think this will provide any benefit. * Altered mental status likely related to meds. Resolved * hypotension post intubation- resolved * Bcx with GPR from 01/06, now just positive 01/11 without antibiotics and normal WBC- presumed contaminant and ID agreed. * Subjective: Patient seen twice today- in AM and post CXR which was taken just after returning from PT on portable suction device. Currently tolerating pain without medication, but "feels air moving." denied accupuncture. Objective: Vital Signs Temp Pulse Resp BP Pulse Ox 36.6 C 94 16 92/62 L 100 01/12/19 12:00 01/12/19 12:00 01/12/19 12:00 01/12/19 12:00 01/12/19 12:00 Laboratory Results 01/10/19 05:18 01/11/19 17:45 01/11/19 01/12/19 01/13/19 05:59 05:59 05:59 Intake Total 600 Output Total 2240 320 300 Balance -1640 -320 -300 Physical Exam - Physical Exam General Appearance: alert, no apparent distress, thin EENT: PERRL/EOMI Neck: supple Respiratory: lungs clear, normal breath sounds, other (no crepitus), No respiratory distress, No accessory muscle use, No crackles, No rhonchi Cardiac/Chest: regular rate, rhythm, No edema, No JVD Abdomen: normal bowel sounds, non-tender, soft, No distended Skin: normal color, warm/dry, No cyanosis Lymphatic: no adenopathy Extremities: No pedal edema Neuro/Psych: alert, normal mood/affect, oriented x 3 ICD10 Worksheet Patient Problems: Problems Problem Status Onset Encounter for chest tube placement Acute Hypotension Acute Hypoxia Acute Pneumothorax, right Acute Pulmonary edema Acute Tension pneumothorax Acute
[2019-01-13 05:57] LABS: PLATELET COUNT 310 10^3/uL (150-400)
[2019-01-13] MEDS: ENOXAPARIN 40 MG/0.4 ML SYR SC SCH (10:17)
--- NOTE | 2019-01-13 10:26 | SOAPPROG ---
SOAP Progress Note Assessment/Plan: Assessment/Plan: 18 year old with tension pneumothorax who then developed re- expansion pulmonary edema. Required mechanical ventilation Self-extubated AM of 01/08. Seen and examined with Dr. Olvera, highway administrative engineer/foreign collection clerk. Discussed course and recommendation for VATS surgery c pleurodesis and possible wedge resection with patient and her parents who just arrived from [place]. Will discuss with Dr. Del Castillo tomorrow. Family friend interpreted today but will plan to use official medical translating service to review surgery, risks/options. We did offer translating services today and ipad in room. Increased ptx yesterday. Improved without intervention. Larger bore chest tube offered but pt declined. Some earlier discussion regarding transfer, which she certainly is entitled to, but is not necessary. As of now, pt and family continue to pursue care here at [facility]. History: Had cough prior Some question if any aspiration CT with pneumonia - no growth on respiratory panel - Blood culture with gram positive vi Repeat limited CT with increased pneumothorax. Likely bleb (some are smaller). Continue to recommend R Vats with apical segmentectomy and pleurodesis. I do not think this will improve with chest tube alone. S: less pain. no sob. comfortable General: alert, oriented, appropriate HENT: atraumatic, normocephalic, pupils round and equal. No scleral icterus Respiratory: Diminished breath sounds R apex; no crackles. CV: RRR, no M/R/G Chest tube with continuos air leak 01/13/19 10:20 Objective: Vital Signs Temp Pulse Resp BP Pulse Ox 36.6 C 65 16 102/58 L 100 01/13/19 08:00 01/13/19 08:00 01/13/19 08:00 01/13/19 08:00 01/13/19 08:00 Laboratory Results 01/13/19 05:03 01/13/19 05:03 01/12/19 01/13/19 01/14/19 05:59 05:59 05:59 Intake Total 900 Output Total 320 620 Balance -320 280 ICD10 Worksheet Patient Problems: Problems Problem Status Onset Encounter for chest tube placement Acute Hypotension Acute Hypoxia Acute Pneumothorax, right Acute Pulmonary edema Acute Tension pneumothorax Acute
--- NOTE | 2019-01-13 11:30 | PDINTPN ---
Transcription Progress Note Assessment/Plan: 18 F [employer] student admitted 01/06/19 with cough and dyspnea found to have complete tension PTX on CXR. Chest tube placed with excellent re-expansion, but she quickly developed re-expansion pulmonary edema with acute compromise and required intubation. Subsequent hypotension also occurred but this resolved rapidly. There was an apparent aspiration event noted in the ED as well. She was sedated with ketamine and fentanyl overnight, but self extubated the morning of 01/08. * Acute respiratory failure with hypoxia likely from re-expansion pulmonary edema. -s/p ETT x 48 hours. Resolved. Remains on oxygen only for absorption of pleural air. * PTX- Likely spontaneous. She has persistent air leak and incomplete resolution. Repeat fillms show incomplete resolution but much better. Continue to use oxygen even if sats 100% to promote absorption. She is HD#7 without resolution so most would advocate VATS. She mentioned going to [place] (inpatient service at [facility]) which she is entitled to do but I dont think this will provide any benefit. Case reviewed with parents who arrived from [place] last PM via friend translating by phone. * Altered mental status likely related to meds. Resolved * hypotension post intubation- resolved * Bcx with GPR from 01/06, now just positive 01/11 without antibiotics and normal WBC- presumed contaminant and ID agreed. * 01/13/19 11:27 Subjective: stable overnight with tolerable pain. Ongoing leak from pleurovac Objective: Vital Signs Temp Pulse Resp BP Pulse Ox 36.6 C 65 16 102/58 L 100 01/13/19 08:00 01/13/19 08:00 01/13/19 08:00 01/13/19 08:00 01/13/19 08:00 Laboratory Results 01/13/19 05:03 01/13/19 05:03 01/12/19 01/13/19 01/14/19 05:59 05:59 05:59 Intake Total 900 Output Total 320 620 Balance -320 280 Physical Exam - Physical Exam General Appearance: alert, no apparent distress, thin EENT: PERRL/EOMI Neck: supple Respiratory: lungs clear, normal breath sounds, other (no crepitus), No respiratory distress, No accessory muscle use, No stridor, No wheezing Abdomen: non-tender, soft, No distended Skin: normal color, warm/dry, No cyanosis Lymphatic: no adenopathy Extremities: No pedal edema Neuro/Psych: alert, normal mood/affect, oriented x 3 ICD10 Worksheet Patient Problems: Problems Problem Status Onset Encounter for chest tube placement Acute Hypotension Acute Hypoxia Acute Pneumothorax, right Acute Pulmonary edema Acute Tension pneumothorax Acute
--- NOTE | 2019-01-13 15:38 | HOSPPROG ---
Hospitalist Progress Note Assessment/Plan: 18 F [employer] student admitted 01/06/19 with cough and dyspnea found to have complete tension PTX on CXR. Chest tube placed with excellent re-expansion, but she quickly developed re-expansion pulmonary edema with acute compromise and required intubation. Subsequent hypotension also occurred.There was an apparent aspiration event noted in the ED. She was sedated with ketamine and fentanyl overnight, but self extubated the morning of 01/08. * Right tension pneumothorax -CT in place -air leak noted -will need a r VATS w apical segmentectomy and pleurodesis -Jazmín said she is feeling comfortable having surgery here and doesn't want to transfer * Acute respiratory failure -self extubated -O2 levels on 2 liters stable *positive blood cx -reviewed findings w micro,nothing detected -appreciate ID input *anemia -stable *elevated LFT's -due to acute illness * Re-expansion pulmonary edema - aspiration PNA less likely * Shock -had been treated w pressors * Fever -none recently * Toxic encephalopathy -resolved *plan: surgery on Tuesday Subjective: Jazmín is happy today, her mom washed her hair and this has helped her spirit. She has no pain. Objective: Vital Signs Temp Pulse Resp BP Pulse Ox 36.7 C 84 14 88/55 L 98 01/13/19 12:00 01/13/19 12:00 01/13/19 12:00 01/13/19 12:00 01/13/19 12:00 Laboratory Results 01/13/19 05:03 01/13/19 05:03 01/12/19 01/13/19 01/14/19 05:59 05:59 05:59 Intake Total 900 Output Total 320 620 Balance -320 280 - Physical Exam Constitutional: other (thin) Eyes: PERRL Ears, Nose, Mouth, Throat: hearing normal Cardiovascular: regular rate and rhythym Respiratory: reduced air movement (very few breath sounds throughout right lung) Skin: warm Musculoskeletal: generalized weakness Neurologic: AAOx3 Psychiatric: interacting appropriately ICD10 Worksheet Patient Problems: Problems Problem Status Onset Encounter for chest tube placement Acute Hypotension Acute Hypoxia Acute Pneumothorax, right Acute Pulmonary edema Acute Tension pneumothorax Acute
--- NOTE | 2019-01-13 16:08 | ASMTCMCOM ---
CM Note CM Note Notes: 18 yr old student from [place], w/tension pnuemothorax and some complications. Parents now here from [place], will meet with Dr Del Castillo on Tuesday to discuss VATS procedure. PT/OT recommend Inpt Rehab, discussed with LANDSCAPE ARCHITECTURE PROFESSOR, feels once pt has surgery she will be able to progress to independent. DC Plan: TBD Date Signed: 01/13/2019 04:07 PM Electronically Signed By:Oralia Khanna RN
--- NOTE | 2019-01-14 08:25 | SOAPPROG ---
SOAP Progress Note Assessment/Plan: Assessment/Plan: 18 year old with tension pneumothorax who then developed re- expansion pulmonary edema. Required mechanical ventilation Self-extubated AM of 01/08. Wet read of CXR stable this am. Seen and examined with Dr. Del Castillo this am. Plan for R VATS c pleurodesis and possible bleb wedge resection tomorrow morning, hopefully a 07:15 start time--will need to confirm with OR. Consent in chart. NPO p mn. Asked RN to notify us when parents return so we can discuss surgery further with chief medical physicist. History: Had cough prior Some question if any aspiration CT with pneumonia - no growth on respiratory panel - Blood culture with gram positive vi Repeat limited CT with increased pneumothorax. Likely bleb (some are smaller). S: just waking up. very sleepy. no sob. appears comfortable. General: somnolent but easily arousable HENT: atraumatic, normocephalic, pupils round and equal. No scleral icterus Respiratory: Diminished breath sounds R apex; no crackles. CV: RRR, no M/R/G Chest tube with continuous air leak 01/14/19 08:22 Objective: Vital Signs Temp Pulse Resp BP Pulse Ox 36.6 C 64 14 100/63 97 01/14/19 07:26 01/14/19 07:26 01/14/19 07:26 01/14/19 07:26 01/14/19 07:26 Laboratory Results 01/13/19 05:03 01/13/19 05:03 01/13/19 01/14/19 01/15/19 05:59 05:59 05:59 Intake Total 900 500 Output Total 620 600 Balance 280 -100 ICD10 Worksheet Patient Problems: Problems Problem Status Onset Encounter for chest tube placement Acute Hypotension Acute Hypoxia Acute Pneumothorax, right Acute Pulmonary edema Acute Tension pneumothorax Acute
--- NOTE | 2019-01-14 11:04 | ASMTCMCOM ---
CM Note CM Note Notes: CM discussed patient case with Neena RN, patients parents to discuss surgery with Dr. Del Castillo this morning with medical device, VATS scheduled for tomorrow morning. PT/OT to eval after surgery, CM to follow. D/C Plan: TBD Date Signed: 01/14/2019 11:03 AM Electronically Signed By:Rand Bhandari
--- NOTE | 2019-01-14 11:46 | HOSPPROG ---
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 Chest tube placed and placed to wall suction with rapid re-expansion, resulting in pulmonary edema and hypotension, requiring intubation. She self-extubated 01/08. Now with plans for VATS tomorrow. * Large right pneumothorax - unclear if this was truly a tension PTX, discussed with Dr. Hutchinson -CT per surg -planning for VATS w apical segmentectomy and pleurodesis tomorrow -Dr. Hutchinson at bedside with parents and medical management trainer, all questions answered and they are comfortable with proceeding with surgery here * Acute respiratory failure 2/2 above - extubated 01/08, now on 2 LPM * positive blood cx - P. Acnes 1/ bottles, d/c ID, likely contaminant, no further w/u indicated * anemia - stable, no e/o bleeding * elevated LFT's - likely due to acute illness -trend * Re-expansion pulmonary edema - aspiration PNA less likely - improved * Shock - s/p pressors, now hemodynamically stable * Fever - resolved * Toxic encephalopathy - resolved * DVT PPLX - low risk, but prolonged hospitalization. Will order SCD's for now , surgery planned for tomorrow. Consider Lovenox when safe post-op. * Dispo - cont inpt, surgery tomorrow Subjective: Pt feels ok. Denies CP or SOB. She is coughing a bit, dry cough. No fevers. Good uop, good po intake. Objective: Vital Signs Temp Pulse Resp BP Pulse Ox 36.6 C 106 H 14 97/67 L 95 01/14/19 11:36 01/14/19 11:36 01/14/19 11:36 01/14/19 11:36 01/14/19 11:36 Laboratory Results 01/13/19 05:03 01/13/19 05:03 01/13/19 01/14/19 01/15/19 05:59 05:59 05:59 Intake Total 900 500 Output Total 620 600 200 Balance 280 -100 -200 - Physical Exam Constitutional: no apparent distress Eyes: PERRL Ears, Nose, Mouth, Throat: moist mucous membranes Cardiovascular: regular rate and rhythym Respiratory: no respiratory distress, reduced air movement, inspiratory crackles Gastrointestinal: normoactive bowel sounds, soft, non-tender abdomen Skin: warm Musculoskeletal: full muscle strength Neurologic: AAOx3 Psychiatric: interacting appropriately ICD10 Worksheet Patient Problems: Problems Problem Status Onset Encounter for chest tube placement Acute Hypotension Acute Hypoxia Acute Pneumothorax, right Acute Pulmonary edema Acute Tension pneumothorax Acute
--- NOTE | 2019-01-14 13:29 | PDINTPN ---
Manager Work Progress Note Assessment/Plan: 18 F [employer] student admitted 01/06/19 with cough and dyspnea found to have complete tension PTX on CXR. Chest tube placed with excellent re-expansion, but she quickly developed re-expansion pulmonary edema with acute compromise and required intubation. Subsequent hypotension also occurred but this resolved rapidly. There was an apparent aspiration event noted in the ED as well. She was sedated with ketamine and fentanyl overnight, but self extubated the morning of 01/08. * Acute respiratory failure with hypoxia likely from re-expansion pulmonary edema. -s/p ETT x 48 hours. Resolved. Remains on oxygen only for absorption of pleural air. No pneumonia * PTX- Likely spontaneous. She has persistent air leak and incomplete resolution. Continue to use oxygen even if sats 100% to promote absorption. She is HD#8 without resolution so most would advocate VATS. Extensive questions answered via tele-interpretor today * Altered mental status likely related to meds. Resolved * hypotension post intubation- resolved * Bcx with GPR from 01/06, now just positive 01/11 without antibiotics and normal WBC- presumed contaminant and ID agreed. Subjective: no events Objective: Vital Signs Temp Pulse Resp BP Pulse Ox 36.6 C 106 H 14 97/67 L 95 01/14/19 11:36 01/14/19 11:36 01/14/19 11:36 01/14/19 11:36 01/14/19 11:36 Laboratory Results 01/13/19 05:03 01/13/19 05:03 01/13/19 01/14/19 01/15/19 05:59 05:59 05:59 Intake Total 900 500 Output Total 620 600 200 Balance 280 -100 -200 Physical Exam - Physical Exam General Appearance: alert, no apparent distress, thin, other (no crepitus) EENT: PERRL/EOMI Neck: supple Respiratory: lungs clear, normal breath sounds, No respiratory distress, No accessory muscle use Cardiac/Chest: regular rate, rhythm, No edema Abdomen: non-tender, soft, No distended Skin: normal color, warm/dry, No cyanosis Lymphatic: no adenopathy Extremities: No pedal edema Neuro/Psych: alert, normal mood/affect, oriented x 3 ICD10 Worksheet Patient Problems: Problems Problem Status Onset Encounter for chest tube placement Acute Hypotension Acute Hypoxia Acute Pneumothorax, right Acute Pulmonary edema Acute Tension pneumothorax Acute
--- NOTE | 2019-01-14 18:55 | SOAPPROG ---
SOAP Progress Note Assessment/Plan: Assessment: seen with my pa dede molina/ please refer to her note 21 female with spontaneous pneumo and persistent air leak despite pneumocath placement risks and options with pt, mother and form press operator bs equal/ cxr shows small rt pneumo Plan:vats pleurodesis and possible blebectomies in am 01/14/19 18:52 Objective: Vital Signs Temp Pulse Resp BP Pulse Ox 36.9 C 96 16 102/54 L 100 01/14/19 16:00 01/14/19 16:00 01/14/19 16:00 01/14/19 16:00 01/14/19 16:00 Laboratory Results 01/13/19 05:03 01/13/19 05:03 01/13/19 01/14/19 01/15/19 05:59 05:59 05:59 Intake Total 900 500 Output Total 620 600 200 Balance 280 -100 -200 ICD10 Worksheet Patient Problems: Problems Problem Status Onset Encounter for chest tube placement Acute Hypotension Acute Hypoxia Acute Pneumothorax, right Acute Pulmonary edema Acute Tension pneumothorax Acute
[2019-01-15 05:27] LABS: PLATELET COUNT 398 10^3/uL (150-400)
[2019-01-15] MEDS ORDERED: ceFAZolin 2 GM/DEXTROSE 100 ML IV ONE (06:00)
--- NOTE | 2019-01-15 06:31 | PDANEPAE ---
ANE Past Medical History - Cardiovascular History Hx Hypertension: No Hx Arrhythmias: No Hx Chest Pain: No Hx Coronary Artery / Peripheral Vascular Disease: No Hx CHF / Valvular Disease: No Hx Palpitations: No - Pulmonary History Hx COPD: No Hx Asthma/Reactive Airway Disease: No Hx Recent Upper Respiratory Infection: No Hx Oxygen in Use at Home: No Hx Sleep Apnea: No Sleep Apnea Screening Result - Last Documented: Negative - Endocrine History Hx Diabetes: No Hypothyroid: No Hyperthyroid: No Obesity: no - Neurological & Psychiatric Hx Hx Neurological and Psychiatric Disorders: No - Chronic Pain History Chronic Pain: No - Surgical History Prior Surgeries: No prior h/o surgery ANE Review of Systems Review of Systems: - Exercise capacity Exercise capacity: >=4 METS ANE Patient History - Allergies Allergies/Adverse Reactions: No Known Allergies Allergy (Unverified 01/06/19 11:23) - Home Medications Home Medications: NK [No Known Home Meds] 01/06/19 [Last Taken Unknown] - NPO status NPO Since - Liquids (Date): 01/15/19 NPO Since - Liquids (Time): 00:00 NPO Since - Solids (Date): 01/15/19 NPO Since - Solids (Time): 00:00 - Anes Hx Hx Anesthesia Complications (with details): no h/o anesthesia - Smoking Hx Smoking Status: Never smoked Marijuana use: No - Alcohol Use Alcohol Use: Rarely (unknown) - Family Anes Hx Family Anes Hx: neg - N/A ANE Labs/Vital Signs - Labs Result Diagrams: 01/15/19 05:03 01/13/19 05:03 - Vital Signs Blood Pressure: 104/66 Heart Rate: 60 Respiratory Rate: 15 O2 Sat (%): 97 Height: 167 cm Weight: 53 kg ANE Physical Exam - Airway Neck exam: FROM Mallampati Score: Class 3 Mouth exam: normal dental/mouth exam - Pulmonary Pulmonary: reduced air movement (R side, L CTA), respiratory distress - Cardiovascular Cardiovascular: regular rate and rhythym, no murmur, rub, or gallop - ASA Status ASA Status: II ANE Anesthesia Plan Anesthesia Plan: general endotracheal anesthesia Total IV Anesthesia: No
[2019-01-15] MEDS ORDERED: LR 1,000 ML IV ONE (06:32)
[2019-01-15] MEDS ORDERED: MIDAZOLAM 2 MG/2 ML VIAL IVP ONE (06:44)
[2019-01-15] MEDS ORDERED: fentaNYL 100 MCG/2 ML INJ ONE ×2 (07:01→08:50)
[2019-01-15] MEDS ORDERED: PROPOFOL 200 MG/20 ML VIAL ONE (07:01)
[2019-01-15] MEDS ORDERED: REMIFENTANIL HCL 1 MG VIAL ONE (07:01)
[2019-01-15] MEDS ORDERED: PROPOFOL/EMULSION 500 MG/50 ML BOTTLE IV ONE (07:01)
[2019-01-15] MEDS ORDERED: LIDOCAINE 2% 2 ML INJ ONE ×2 (07:02)
[2019-01-15] MEDS ORDERED: TALC 3 GM INTRAPLEURAL VIAL ONE (07:07)
[2019-01-15] MEDS ORDERED: ROCURONIUM 50 MG/5 ML VIAL ONE (07:07)
[2019-01-15] MEDS ORDERED: ONDANSETRON 4 MG/2 ML VIAL ONE (07:07)
[2019-01-15] MEDS ORDERED: DEXAMETHASONE 4 MG/ML VIAL ONE (07:07)
[2019-01-15] MEDS ORDERED: BUPIVACAINE/EPI 0.5% 30 ML SDV ONE (07:07)
[2019-01-15] MEDS ORDERED: PHENYLEPHRINE HCL 100 MCG/ML SYR ONE (07:32)
[2019-01-15] MEDS ORDERED: PROMETHAZINE HCL 25 MG/ML INJ IVP PRN (08:28)
[2019-01-15] MEDS ORDERED: ONDANSETRON 4 MG/2 ML VIAL IVP PRN (08:28)
[2019-01-15] MEDS ORDERED: HYDROCODONE/APAP 5/325 TAB PO PRN (08:28)
[2019-01-15] MEDS ORDERED: PHENYLEPHRINE HCL 100 MCG/ML SYR IVP PRN (08:28)
[2019-01-15] MEDS ORDERED: NALOXONE HCL 0.4 MG/ML INJ IVP PRN (08:28)
[2019-01-15] MEDS ORDERED: oxyCODONE IR 5 MG TAB PO PRN (08:28)
[2019-01-15] MEDS ORDERED: LR 500 ML IV PRN (08:28)
[2019-01-15] MEDS ORDERED: ACETAMINOPHEN 500 MG TAB PO PRN (08:28)
[2019-01-15] MEDS ORDERED: MEPERIDINE 25 MG/0.5 ML AMP IVP PRN (08:28)
[2019-01-15] MEDS ORDERED: SUGAMMADEX SODIUM 200 MG/2 ML VIAL IVP ONE (08:30)
[2019-01-15] MEDS ORDERED: OXYCODONE/APAP 5/325 TAB PO PRN (08:42)
--- NOTE | 2019-01-15 08:45 | POSTOPPROG ---
Post Op Note Date of Operation: 01/15/19 Surgeon: Yonatan Del Castillo Hand Paster: Lexi Ring Anesthesiologist: Calderon Mcgregor Anesthesia: GET(General Endotracheal) Pre-op Diagnosis: spontaneous PTX c peristent air leak Post-op Diagnosis: same Procedure: R VATS c pleurodesis and bleb resection Findings: apical blebs, photos in chart Inf/Abcess present in the surg proc area at time of surgery?: No EBL: Minimal Bowel Protocol: N/A Clean Closure Performed: N/A Drains: Other (2 24 Fr chest tubes) Specimen(s): apical bleb lung wedge resection to pathology
[2019-01-15] MEDS ORDERED: KETOROLAC 30 MG/1 ML SDV IVP ONE (08:49)
[2019-01-15] MEDS ORDERED: KETOROLAC 30 MG/1 ML SDV ONE (08:50)
--- NOTE | 2019-01-15 08:50 | POSTANESTH ---
Post Anesthetic Evaluation Cardiovascular Status: Normal, Stable Respiratory Status: Normal, Stable Level of Consciousness/Mental Status: Can Participate in Eval Pain Control: Inadeq, Add Tx Required Nausea/Vomiting Control: Adequate, Prn Tx Ordered Complications Possibly Related to Anesthesia: None Noted
[2019-01-15] MEDS: fentaNYL 100 MCG/2 ML INJ IVP PRN ×3 (08:52→09:02)
[2019-01-15] MEDS ORDERED: HYDROmorphONE/DILAUDID 1 MG/ML INJ ONE (09:04)
[2019-01-15] MEDS: HYDROmorphONE/DILAUDID 1 MG/ML INJ IVP PRN ×4 (09:06→14:18)
--- NOTE | 2019-01-15 13:20 | SOAPPROG ---
SOAP Progress Note Assessment/Plan: Assessment/plan: * Acute respiratory failure with hypoxia likely from re-expansion pulmonary edema. -s/p ETT x 48 hours. Resolved. -Remains on oxygen only for absorption of pleural air. No pneumonia * Spontaneous pneumothorax-status post VATS -continue chest tube -check chest x-ray in the morning * Altered mental status likely related to meds-resolved * Bcx with GPR from 01/06, now just positive 01/11 without antibiotics and normal WBC- presumed contaminant and ID agreed. Subjective: Resting comfortably postoperatively. Pain well tolerated. Objective: Vital Signs Temp Pulse Resp BP Pulse Ox 36.8 C 85 16 103/58 L 99 01/15/19 12:37 01/15/19 12:37 01/15/19 12:37 01/15/19 12:37 01/15/19 12:37 Laboratory Results 01/15/19 05:03 01/13/19 05:03 01/14/19 01/15/19 01/16/19 05:59 05:59 05:59 Intake Total 500 250 850 Output Total 600 300 57 Balance -100 -50 793 - Time Spent With Patient Time Spent With Patient: 25 min of time spent with patient, over 1/2 involved coordination of care counseling. Case discussed with nursing, surgery and patient's family Physical Exam - Physical Exam General Appearance: alert, no apparent distress EENT: PERRL/EOMI Neck: non-tender Respiratory: crackles (Right base), No respiratory distress, No wheezing Cardiac/Chest: normal peripheral pulses, regular rate, rhythm Peripheral Pulses: 2+: carotid (R), carotid (L), femoral (R), femoral (L), dorsalis-pedis (R), dorsalis-pedis (L) Abdomen: normal bowel sounds, non-tender, soft Pelvic Exam: deferred Rectal: deferred Skin: normal color, warm/dry Lymphatic: no adenopathy Neuro/Psych: no motor/sensory deficits, alert, normal mood/affect, oriented x 3 ICD10 Worksheet Patient Problems: Problems Problem Status Onset Encounter for chest tube placement Acute Hypotension Acute Hypoxia Acute Pneumothorax, right Acute Pulmonary edema Acute Tension pneumothorax Acute
[2019-01-15] MEDS: IBUPROFEN 600 MG TAB PO PRN (14:17)
[2019-01-15] MEDS ORDERED: IBUPROFEN SUSP 100 MG/5 ML UDCUP PO PRN (15:00)
--- NOTE | 2019-01-15 15:27 | HOSPPROG ---
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 Chest tube placed and placed to wall suction with rapid re-expansion, resulting in pulmonary edema and hypotension, requiring intubation. She self-extubated 01/08. S/p VATS today. *Large right pneumothorax -S/P VATS w pleurodesis and wedge resection 01/15- two CT in place -having significant pain from this and wants to avoid pain medications, encouraged her to take them since she is just back from surgery * Acute respiratory failure 2/2 above - extubated 01/08, now on 2 LPM * positive blood cx - P. Acnes / bottles, d/c ID, likely contaminant, no further w/u indicated * anemia - stable, no e/o bleeding * elevated LFT's - likely due to acute illness -trend * Re-expansion pulmonary edema - aspiration PNA less likely - improved * Shock - s/p pressors, now hemodynamically stable * Fever - resolved * Toxic encephalopathy - resolved * DVT PPLX - low risk, but prolonged hospitalization. SCD's for now. Consider Lovenox when safe post-op. Subjective: Jazmín is having pain on her right side. It's at a '6' on scale of ' 1-10' Objective: Vital Signs Temp Pulse Resp BP Pulse Ox 36.9 C 83 16 110/54 L 99 01/15/19 13:51 01/15/19 13:51 01/15/19 13:51 01/15/19 13:51 01/15/19 13:51 Laboratory Results 01/15/19 05:03 01/13/19 05:03 01/14/19 01/15/19 01/16/19 05:59 05:59 05:59 Intake Total 500 250 850 Output Total 600 300 57 Balance -100 -50 793 - Physical Exam Constitutional: chronically ill appearing, other (thin) Eyes: PERRL Ears, Nose, Mouth, Throat: hearing normal Cardiovascular: regular rate and rhythym Respiratory: reduced air movement, other (avoids breathing deeply due to pain, difficult to hear any lung sounds on the right) Skin: warm, No normal color (pale) Musculoskeletal: generalized weakness Neurologic: AAOx3 Psychiatric: interacting appropriately ICD10 Worksheet Patient Problems: Problems Problem Status Onset Encounter for chest tube placement Acute Hypotension Acute Hypoxia Acute Pneumothorax, right Acute Pulmonary edema Acute Tension pneumothorax Acute
--- NOTE | 2019-01-15 22:21 | SOAPPROG ---
SOAP Progress Note Assessment/Plan: Assessment: seen with my pa dede molina/ please refer to her note 21 female with spontaneous pneumo and persistent air leak despite pneumocath placement risks and options with pt, mother and bait man bs equal/ cxr shows small rt pneumo Plan:vats pleurodesis and possible blebectomies in am 01/14/19 18:52 01/15/19 22:20 POSTOP LOOKS GOOD/ NO AIRLEAK/ LUNG FULLY EXPANDED/ CO PAIN Objective: Vital Signs Temp Pulse Resp BP Pulse Ox 36.9 C 67 18 103/52 L 100 01/15/19 18:52 01/15/19 18:52 01/15/19 18:52 01/15/19 18:52 01/15/19 18:52 Laboratory Results 01/15/19 05:03 01/13/19 05:03 01/14/19 01/15/19 01/16/19 05:59 05:59 05:59 Intake Total 247 750 5986 Output Total 600 300 617 Balance -100 -50 430 ICD10 Worksheet Patient Problems: Problems Problem Status Onset Encounter for chest tube placement Acute Hypotension Acute Hypoxia Acute Pneumothorax, right Acute Pulmonary edema Acute Tension pneumothorax Acute
[2019-01-16] MEDS: KETOROLAC 15 MG/1 ML SDV IVP SCH ×4 (00:17→17:42)
--- NOTE | 2019-01-16 08:57 | SOAPPROG ---
SOAP Progress Note Assessment/Plan: Assessment/Plan: 18 year old with tension pneumothorax who then developed re- expansion pulmonary edema. Required mechanical ventilation Self-extubated AM of 01/08. persistent air leak. now s/p R VATS c pleurodesis and resection of apical blebs, 01/15. Seen c Dr. Del Castillo. CXR stable. Continue CT. Regular diet. Pain control PRN. Routine post op care. Dispo: pending. S: no sob. General: alert, nad HENT: atraumatic, normocephalic, pupils round and equal. No scleral icterus, mmm Respiratory: no wob Chest tube with air leak 01/16/19 08:54 Objective: Vital Signs Temp Pulse Resp BP Pulse Ox 36.6 C 61 16 108/59 L 99 01/16/19 08:00 01/16/19 08:00 01/16/19 08:00 01/16/19 08:00 01/16/19 08:00 Laboratory Results 01/15/19 05:03 01/13/19 05:03 01/15/19 01/16/19 01/17/19 05:59 05:59 05:59 Intake Total 250 1287 Output Total 300 639 Balance -50 648 ICD10 Worksheet Patient Problems: Problems Problem Status Onset Encounter for chest tube placement Acute Hypotension Acute Hypoxia Acute Pneumothorax, right Acute Pulmonary edema Acute Tension pneumothorax Acute
[2019-01-16] MEDS: oxyCODONE ORAL SOLUTION 10 MG/0.5 ML UDSYR PO PRN ×2 (09:42→17:42)
[2019-01-16] MEDS ORDERED: NS 1,000 ML IV SCH (12:00)
--- NOTE | 2019-01-16 13:32 | SOAPPROG ---
SOAP Progress Note Assessment/Plan: Assessment/plan: * Acute respiratory failure with hypoxia likely from re-expansion pulmonary edema. -s/p ETT x 48 hours. Resolved. -Remains on oxygen only for absorption of pleural air. No pneumonia * Spontaneous pneumothorax-status post VATS -continue chest tube -check chest x-ray in the morning * Pain-well tolerated * Altered mental status likely related to meds-resolved * Bcx with GPR from 01/06, now just positive 01/11 without antibiotics and normal WBC- presumed contaminant and ID agreed. Subjective: Sitting up in chair. Resting comfortably. Pain well tolerated. Objective: Vital Signs Temp Pulse Resp BP Pulse Ox 36.7 C 83 16 98/51 L 99 01/16/19 11:34 01/16/19 11:34 01/16/19 11:34 01/16/19 11:34 01/16/19 11:34 Laboratory Results 01/15/19 05:03 01/13/19 05:03 01/15/19 01/16/19 01/17/19 05:59 05:59 05:59 Intake Total 250 1287 Output Total 300 639 400 Balance -50 648 -400 - Time Spent With Patient Time Spent With Patient: 25 min of time spent with patient, over 1/2 involved with coordination of care or counseling. Case discussed with surgery Physical Exam - Physical Exam General Appearance: alert, no apparent distress EENT: PERRL/EOMI Neck: non-tender Respiratory: chest non-tender, lungs clear, normal breath sounds Cardiac/Chest: normal peripheral pulses, regular rate, rhythm Abdomen: normal bowel sounds, non-tender, soft Pelvic Exam: deferred Rectal: deferred Skin: normal color, warm/dry Extremities: normal range of motion, non-tender, normal inspection, normal capillary refill Neuro/Psych: alert, normal mood/affect, oriented x 3 ICD10 Worksheet Patient Problems: Problems Problem Status Onset Encounter for chest tube placement Acute Hypotension Acute Hypoxia Acute Pneumothorax, right Acute Pulmonary edema Acute Tension pneumothorax Acute
--- NOTE | 2019-01-16 15:55 | HOSPPROG ---
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 Chest tube placed and placed to wall suction with rapid re-expansion, resulting in pulmonary edema and hypotension, requiring intubation. She self-extubated 01/08. S/p VATS. Large right pneumothorax S/P VATS w pleurodesis and wedge resection 01/15- two CT in place having significant pain from this and wants to avoid pain medications, encouraged her to take them since she is just back from surgery Acute respiratory failure 2/2 above extubated 01/08, now on 2 LPM positive blood cx - P. Acnes / bottles, d/c ID, likely contaminant, no further w/u indicated anemia - stable, no e/o bleeding elevated LFT's - likely due to acute illness trending down Re-expansion pulmonary edema - aspiration PNA less likely - improved Shock - s/p pressors, now hemodynamically stable Fever - resolved Toxic encephalopathy - resolved DVT PPLX - low risk, but prolonged hospitalization. SCD's for now. Consider Lovenox when safe post-op. Subjective: cxr w no R pneumothorax (interp by me). case d/w dede lopesroy, surgery PA Objective: Vital Signs Temp Pulse Resp BP Pulse Ox 36.7 C 83 16 98/51 L 99 01/16/19 11:34 01/16/19 11:34 01/16/19 11:34 01/16/19 11:34 01/16/19 11:34 Laboratory Results 01/15/19 05:03 01/13/19 05:03 01/15/19 01/16/19 01/17/19 05:59 05:59 05:59 Intake Total 250 1287 Output Total 300 639 400 Balance -50 648 -400 - Physical Exam Constitutional: no apparent distress, appears nourished Eyes: PERRL, anicteric sclera Ears, Nose, Mouth, Throat: moist mucous membranes, hearing normal Cardiovascular: regular rate and rhythym, no murmur, rub, or gallop Respiratory: no respiratory distress, no rales or rhonchi Gastrointestinal: normoactive bowel sounds, soft, non-tender abdomen Genitourinary: No barrientos in urethra Skin: warm, normal color Musculoskeletal: full muscle strength Neurologic: AAOx3 ICD10 Worksheet Patient Problems: Problems Problem Status Onset Encounter for chest tube placement Acute Hypotension Acute Hypoxia Acute Pneumothorax, right Acute Pulmonary edema Acute Tension pneumothorax Acute
[2019-01-16] MEDS: ACETAMINOPHEN 650 MG/20.3 ML UDCUP PO PRN (22:04)
[2019-01-17] MEDS: KETOROLAC 15 MG/1 ML SDV IVP SCH ×4 (00:33→17:37)
[2019-01-17] MEDS: oxyCODONE ORAL SOLUTION 10 MG/0.5 ML UDSYR PO PRN ×2 (09:20→15:14)
--- NOTE | 2019-01-17 09:29 | HOSPPROG ---
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 Chest tube placed and placed to wall suction with rapid re-expansion, resulting in pulmonary edema and hypotension, requiring intubation. She self-extubated 01/08. S/p VATS. Large right pneumothorax S/P VATS w pleurodesis and wedge resection 01/15- two CT in place having significant pain from this and wants to avoid pain medications, encouraged her to take them since she is just back from surgery Acute respiratory failure 2/2 above extubated 01/08, now on 2 LPM 01/17: 100% on RA positive blood cx - P. Acnes / bottles, d/c ID, likely contaminant, no further w/u indicated anemia - stable, no e/o bleeding elevated LFT's - likely due to acute illness trending down Re-expansion pulmonary edema - aspiration PNA less likely - improved Shock - s/p pressors, now hemodynamically stable Fever - resolved Toxic encephalopathy - resolved DVT PPLX - low risk, but prolonged hospitalization. SCD's for now. Consider Lovenox when safe post-op. Subjective: cxr w tiny apical ptx (interp by me). chest tube to wall suction. case d/w dr waters Objective: Vital Signs Temp Pulse Resp BP Pulse Ox 36.5 C 56 L 16 93/55 L 99 01/17/19 08:00 01/17/19 08:00 01/17/19 08:00 01/17/19 08:00 01/17/19 08:00 Laboratory Results 01/15/19 05:03 01/13/19 05:03 01/16/19 01/17/19 01/18/19 05:59 05:59 05:59 Intake Total 1287 2150 Output Total 639 1510 Balance 648 640 - Physical Exam Constitutional: no apparent distress, appears nourished Eyes: PERRL, anicteric sclera Ears, Nose, Mouth, Throat: moist mucous membranes, hearing normal Cardiovascular: regular rate and rhythym, no murmur, rub, or gallop Respiratory: no respiratory distress, no rales or rhonchi Gastrointestinal: normoactive bowel sounds, soft, non-tender abdomen Genitourinary: no bladder fullness, No barrientos in urethra Skin: warm, normal color Musculoskeletal: full muscle strength Neurologic: AAOx3 ICD10 Worksheet Patient Problems: Problems Problem Status Onset Encounter for chest tube placement Acute Hypotension Acute Hypoxia Acute Pneumothorax, right Acute Pulmonary edema Acute Tension pneumothorax Acute
--- NOTE | 2019-01-17 09:46 | SOAPPROG ---
SOAP Progress Note Assessment/Plan: Assessment/plan: 18 y/o F with tension pneumothorax who then developed re-expansion pulmonary edema. Required mechanical ventilation Self-extubated AM of 01/08. persistent air leak. Now s/p R VATS c pleurodesis and resection of apical blebs, 01/15. CXR stable. No air leak. Drainage decreasing. Continue CT to suction. Will likely pull tomorrow. Regular diet. Pain improving. S: Pain controlled. No SOB O: Sleepy Afebrile, VSS RRR CTAB, no increased WOB, chest tube with no air leak. Abdomen: soft, nontender, nondistended 01/17/19 09:43 Objective: Vital Signs Temp Pulse Resp BP Pulse Ox 36.5 C 56 L 16 93/55 L 99 01/17/19 08:00 01/17/19 08:00 01/17/19 08:00 01/17/19 08:00 01/17/19 08:00 Laboratory Results 01/15/19 05:03 01/13/19 05:03 01/16/19 01/17/19 01/18/19 05:59 05:59 05:59 Intake Total 1287 2150 Output Total 639 1510 Balance 644 467 ICD10 Worksheet Patient Problems: Problems Problem Status Onset Encounter for chest tube placement Acute Hypotension Acute Hypoxia Acute Pneumothorax, right Acute Pulmonary edema Acute Tension pneumothorax Acute
--- NOTE | 2019-01-17 14:50 | ASMTCMCOM ---
CM Note CM Note Notes: Spoke w/MD, pt continues to improve after VATS procedure. May have chest tubes dc'd tomorrow, inpt rehab continues to follow but thinks that pt may end up too good for rehab. DC Plan: TBD Date Signed: 01/17/2019 02:49 PM Electronically Signed By:Oralia Khanna RN
[2019-01-17] MEDS: ACETAMINOPHEN 650 MG/20.3 ML UDCUP PO PRN (19:58)
[2019-01-18] MEDS: KETOROLAC 15 MG/1 ML SDV IVP SCH ×2 (00:01→05:33)
[2019-01-18] MEDS: oxyCODONE ORAL SOLUTION 10 MG/0.5 ML UDSYR PO PRN ×2 (02:04→08:34)
--- NOTE | 2019-01-18 10:57 | HOSPPROG ---
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 Chest tube placed and placed to wall suction with rapid re-expansion, resulting in pulmonary edema and hypotension, requiring intubation. She self-extubated 01/08. S/p VATS. Large right pneumothorax did well on water seal suspect tube can come out today constipation: miralax bid Acute respiratory failure 2/2 above extubated 01/08, now on 2 LPM 01/17: 100% on RA positive blood cx - P. Acnes 1/2 bottles, d/c ID, likely contaminant, no further w/u indicated anemia - stable, no e/o bleeding elevated LFT's - likely due to acute illness trending down Re-expansion pulmonary edema - aspiration PNA less likely - improved Shock - s/p pressors, now hemodynamically stable Fever - resolved Toxic encephalopathy - resolved DVT PPLX - low risk, but prolonged hospitalization. SCD's for now. Consider Lovenox when safe post-op. Subjective: case d/w dr waters. cxr w no ptx, on water seal overnight Objective: Vital Signs Temp Pulse Resp BP Pulse Ox 36.7 C 67 24 H 100/57 L 100 01/18/19 08:22 01/18/19 08:22 01/18/19 08:22 01/18/19 10:37 01/18/19 10:37 Laboratory Results 01/15/19 05:03 01/13/19 05:03 01/17/19 01/18/19 01/19/19 05:59 05:59 05:59 Intake Total 2150 500 Output Total 1510 1480 200 Balance 640 -980 -200 - Physical Exam Constitutional: no apparent distress, appears nourished Eyes: PERRL, anicteric sclera Ears, Nose, Mouth, Throat: moist mucous membranes, hearing normal Cardiovascular: regular rate and rhythym, no murmur, rub, or gallop Respiratory: no respiratory distress, no rales or rhonchi Gastrointestinal: normoactive bowel sounds, soft, non-tender abdomen Genitourinary: no bladder fullness, No barrientos in urethra Skin: warm, normal color Musculoskeletal: full muscle strength ICD10 Worksheet Patient Problems: Problems Problem Status Onset Encounter for chest tube placement Acute Hypotension Acute Hypoxia Acute Pneumothorax, right Acute Pulmonary edema Acute Tension pneumothorax Acute
--- NOTE | 2019-01-18 11:32 | SOAPPROG ---
SOAP Progress Note Assessment/Plan: Assessment/plan: 18 y/o F with tension pneumothorax who then developed re-expansion pulmonary edema. Required mechanical ventilation Self-extubated AM of 01/08. persistent air leak. Now s/p R VATS c pleurodesis and resection of apical blebs, 01/15. Pain. Refusing iv toradol. Will start po ibuprofen. Oxycodone helping too. Pain will likely improve after chest tube removal. Chest xray shows no residual pneumo. Plan: pull chest tubes today. S: Sitting up in chair. Very tearful because of pain with movement. O: Alert Afebrile, VSS RRR CTAB, no increased WOB, chest tube to WS with no air leak. Abdomen: soft, nontender, nondistended 01/18/19 11:30 Objective: Vital Signs Temp Pulse Resp BP Pulse Ox 36.7 C 67 24 H 100/57 L 100 01/18/19 08:22 01/18/19 08:22 01/18/19 08:22 01/18/19 10:37 01/18/19 10:37 Laboratory Results 01/15/19 05:03 01/13/19 05:03 01/17/19 01/18/19 01/19/19 05:59 05:59 05:59 Intake Total 2150 500 Output Total 1510 1480 200 Balance 640 -980 -200 ICD10 Worksheet Patient Problems: Problems Problem Status Onset Encounter for chest tube placement Acute Hypotension Acute Hypoxia Acute Pneumothorax, right Acute Pulmonary edema Acute Tension pneumothorax Acute
[2019-01-18] MEDS: POLYETHYLENE GLYCOL 3350 17 GM PKT PO SCH ×2 (12:27→20:02)
[2019-01-18] MEDS: IBUPROFEN SUSP 100 MG/5 ML UDCUP PO PRN ×2 (13:12→19:58)
[2019-01-19] MEDS: POLYETHYLENE GLYCOL 3350 17 GM PKT PO SCH ×3 (08:49→21:03)
--- NOTE | 2019-01-19 10:12 | SOAPPROG ---
SOAP Progress Note Assessment/Plan: Assessment/plan: 18 y/o F with tension pneumothorax who then developed re-expansion pulmonary edema. Required mechanical ventilation Self-extubated AM of 01/08. persistent air leak. Now s/p R VATS c pleurodesis and resection of apical blebs, 01/15. S/p chest tube removal yesterday. No pneumo on follow up cxr. Dispo: likely home tomorrow. S: Much better today. Resting and eating in bed. Still pain with movement, but much improved. Ibuprofen working well. O: Alert Afebrile, VSS RRR CTAB, no increased WOB, incisions well dressed. Abdomen: soft, nontender, nondistended 01/19/19 10:10 Objective: Vital Signs Temp Pulse Resp BP Pulse Ox 36.6 C 65 12 107/65 100 01/19/19 08:00 01/19/19 08:00 01/19/19 08:00 01/19/19 08:00 01/19/19 08:00 Laboratory Results 01/15/19 05:03 01/13/19 05:03 01/18/19 01/19/19 01/20/19 05:59 05:59 05:59 Intake Total 500 350 Output Total 1480 1300 Balance -980 -950 ICD10 Worksheet Patient Problems: Problems Problem Status Onset Encounter for chest tube placement Acute Hypotension Acute Hypoxia Acute Pneumothorax, right Acute Pulmonary edema Acute Tension pneumothorax Acute
[2019-01-19] MEDS ORDERED: POLYETHYLENE GLYCOL 3350 17 GM PKT PO PRN (11:43)
[2019-01-19] MEDS ORDERED: MAGNESIUM HYDROXIDE 30 ML UDCUP PO PRN (11:43)
[2019-01-19] MEDS ORDERED: LACTULOSE 20 GM/30 ML UDCUP PO PRN (11:43)
[2019-01-19] MEDS ORDERED: BISACODYL 10 MG SUPP PR PRN (11:43)
[2019-01-19] MEDS: SENNOSIDES/DOCUSATE SODIUM TAB PO SCH ×2 (15:18→21:03)
[2019-01-19] MEDS ORDERED: NS 1,000 ML IV ONE (15:46)
--- NOTE | 2019-01-19 15:56 | HOSPPROG ---
Hospitalist Progress Note Assessment/Plan: CRITICAL CARE NOTE CRITICAL CARE BEDSIDE TIME GREATER THAN 45 MIN IN 2 VISITS Called to see patient for rapid heart rate and fever this afternoon SUBJECTIVE: The patient feels much weaker today, feels very hot, having abdominal cramping and constipation Denies any new worsening shortness of breath or increase in chest discomfort Denies nausea or vomiting Denies bleeding Denies any urinary symptoms Denies any other new discomforts OBJECTIVE: Pulse has been in the 60s through 125 Blood pressure is are stable so far [place] 100.1, respirations stable so far Exam: Awake alert oriented lying in bed Skin febrile and diaphoretic mildly pale but no other discoloration Slight delay of capillary refill in fingers HEENT normal Neck without swelling tenderness or other abnormality Lungs she takes very shallow breaths very hard to hear anything but no obvious abnormality heard Heart tachycardic, heart sounds diminished but no abnormality heard other than rate Abdomen with mildly hyperactive bowel sounds nondistended, mildly tender without rebound No edema of extremities Joints unremarkable No labs done last couple days. I have ordered labs for sepsis protocol all pending DIAGNOSES: * Sepsis, Acute onset now with fever tachycardia, decreased capillary refill -etiology uncertain but would certainly have some suspicion for thoracic or pulmonary infection, no specific symptoms of other source at this time * Status post spontaneous pneumothorax requiring chest tube, subsequent re- expansion lung injury and edema, required mechanical ventilation and VATS * Shock associated with above episode resolved * Constipation * P. Acnes in blood culture 1 of 2 bottles, suspected contaminant * Anemia * Elevated hepatic transaminases PLANS: * IV fluid bolus * Sepsis labs ordered * Blood cultures * Stat chest x-ray * Follow closely for progress * Consider empiric antibiotics depending on initial data Objective: Vital Signs Temp Pulse Resp BP Pulse Ox 37.8 C 114 H 16 100/61 96 01/19/19 15:08 01/19/19 15:08 01/19/19 15:08 01/19/19 15:08 01/19/19 15:08 Laboratory Results 01/15/19 05:03 01/13/19 05:03 01/18/19 01/19/19 01/20/19 06:59 06:59 06:59 Intake Total 500 350 Output Total 1480 1300 Balance -980 -950 ICD10 Worksheet Patient Problems: Problems Problem Status Onset Encounter for chest tube placement Acute Hypotension Acute Hypoxia Acute Pneumothorax, right Acute Pulmonary edema Acute Tension pneumothorax Acute
[2019-01-19 16:56] LABS: PLATELET COUNT 471 10^3/uL (150-400)
[2019-01-19] MEDS: ACETAMINOPHEN 650 MG/20.3 ML UDCUP PO PRN (17:03)
[2019-01-19] MEDS: NS 1,000 ML IV SCH (17:04)
[2019-01-19 17:13] LABS: INR 0.97 (0.83-1.16); PROTIME(PATIENT) 12.5 SEC (12.0-15.0)
--- NOTE | 2019-01-19 17:34 | ASMTCMCOM ---
CM Note CM Note Notes: Pt feeling ill today, tachycardic and elevated temperature. Blood cultures pending, CM w/f. Dc date uncertain, [facility] w/f. Becky from [facility] met with pt and parents today. DC Plan: TBD Date Signed: 01/19/2019 05:33 PM Electronically Signed By:Oralia Khanna RN
[2019-01-19] MEDS ORDERED: NS 1,600 ML IV ONE (18:43)
--- NOTE | 2019-01-19 21:43 | GOP ---
[f rep st] OPERATIVE REPORT DATE OF OPERATION: 01/15/2019 SURGEON: Yonatan Del Castillo MD CAMPAIGN SPECIALIST: Lexi Ring PA-C ANESTHESIOLOGIST: Calderon Mcgregor DO PREOPERATIVE DIAGNOSIS: Spontaneous recurrent pneumothorax on the right. POSTOPERATIVE DIAGNOSIS: Spontaneous recurrent pneumothorax on the right. PROCEDURE PERFORMED: Right VATS with pleurodesis and bleb resection. FINDINGS: Operative findings: Patient was found to have a moderately large apical bleb. There were no other abnormalities seen in the lung. Minimal fluid in the chest. DESCRIPTION OF PROCEDURE: Patient was taken to the operating room where she received satisfactory ge neral endotracheal anesthesia by Dr. Mcgregor. She was intubated with a double-lumen endotracheal tube and placed in the left lateral decubitus position, prepped and draped in the usual sterile [facility] ion. A short incision was made in the 7th intercostal space in the midaxillary line. A trocar was i ntroduced. Good visualization was obtained. Two other trocars were placed higher up on the chest in the anterior axillary line and posterior axillary line. The lung was mobilized. The superior segme nt of the lower lobe was free from blebs. In the upper lobe, however, there was significant bleb. S tapler was introduced and the area was stapled off and the specimen retrieved. There were no other a bnormal areas. The wound was irrigated. The pleural surfaces were roughed up with a Bovie telephone cleaner p ad, and then a fine mist was injected of talcum powder. Two chest tubes were brought in through sep arate trocar sites. The remaining trocar site was closed with 4-0 Monocryl subcuticular sutures. Al l wounds were infiltrated with 0.5% Marcaine. Chest tubes were connected to a Pleur-evac drainage sy stem. She tolerated the procedure well. The wounds were dressed and she was taken to the recovery r oom in good condition. She was taken to the recovery room in good condition. /[id number]/MODL
[2019-01-20] MEDS: SENNOSIDES/DOCUSATE SODIUM TAB PO SCH ×2 (08:24→20:41)
[2019-01-20] MEDS: POLYETHYLENE GLYCOL 3350 17 GM PKT PO SCH ×2 (08:24→20:41)
[2019-01-20] MEDS: NS 1,000 ML IV SCH (12:00)
[2019-01-20] MEDS ORDERED: IOPAMIDOL (ISOVUE 370) 100 ML BTL IV ONE (12:35)
--- NOTE | 2019-01-20 12:59 | SOAPPROG ---
SOAP Progress Note Assessment/Plan: Assessment: 18-year-old female status post VATS pleurodesis Had a significant fever and tachycardia yesterday, remains intermittently tachycardic today. Chest tubes removed yesterday, repeat chest film today shows no residual pneumothorax and good aeration of the lung I can't really explain her and admitted tachycardia and fever. There is concern for possible PE and I have subsequently ordered a CT angio to evaluate for this Plan: 01/20/19 12:58 Subjective: Has a persistent cough, intermittently tachycardic Objective: Vital Signs Temp Pulse Resp BP Pulse Ox 36.9 C 81 14 112/76 96 01/20/19 12:00 01/20/19 12:00 01/20/19 12:00 01/20/19 12:00 01/20/19 12:00 Laboratory Results 01/19/19 16:45 01/19/19 16:45 01/19/19 01/20/19 01/21/19 05:59 05:59 05:59 Intake Total 350 Output Total 1300 1050 Balance -950 -1050 PT 12.5 SEC (12.0-15.0) 01/19/19 16:45 INR 0.97 (0.83-1.16) 01/19/19 16:45 ICD10 Worksheet Patient Problems: Problems Problem Status Onset Encounter for chest tube placement Acute Hypotension Acute Hypoxia Acute Pneumothorax, right Acute Pulmonary edema Acute Tension pneumothorax Acute
--- NOTE | 2019-01-20 15:45 | HOSPPROG ---
Hospitalist Progress Note Assessment/Plan: CRITICAL CARE NOTE CRITICAL CARE BEDSIDE TIME GREATER THAN 45 MIN IN 2 VISITS Called to see patient for rapid heart rate and fever this afternoon SUBJECTIVE: The patient feels much weaker today, feels very hot, having abdominal cramping and constipation Denies any new worsening shortness of breath or increase in chest discomfort Denies nausea or vomiting Denies bleeding Denies any urinary symptoms Denies any other new discomforts OBJECTIVE: T-max last night 38.2, still normal temperature so far today Pulses yesterday evening up to 115 have now normalized after aggressive hydration Blood pressures have remained normal and respirations as well Exam: Awake alert oriented lying in bed Skin febrile and diaphoretic mildly pale but no other discoloration Slight delay of capillary refill in fingers HEENT normal Neck without swelling tenderness or other abnormality Lungs she takes very shallow breaths very hard to hear anything but no obvious abnormality heard Heart tachycardic, heart sounds diminished but no abnormality heard other than rate Abdomen with mildly hyperactive bowel sounds nondistended, mildly tender without rebound No edema of extremities Joints unremarkable Imaging: I reviewed her CT scan chest images done today, which shows re-expansion of right lung with tiny pneumothorax, and area of focal consolidation medial right upper lobe, some patchy consolidation right lower lobe which could be resolving pneumonia/re-expansion injury or atelectasis, and some mild patchy abnormalities on the left side with some small areas of pleural effusion; there is no pulmonary embolism Lab data: Last night her white blood cell count gone up to 17,000 with predominance in neutrophils Lactic acid last evening was up to 2.3 with normal INR, normal metabolic panel Microbiology: Repeat blood cultures from yesterday are still pending with no growth at this point DIAGNOSES: * Sepsis, Acute onset 01/19 now resolved after IV fluids and with antibiotics started -etiology uncertain; consider pneumonia however the abnormalities on CT could be resolving from her previous lung abnormalities earlier this admission and she has no specific new pulmonary symptoms * Status post spontaneous pneumothorax requiring chest tube, subsequent re- expansion lung injury and edema, required mechanical ventilation and VATS * Shock associated with pneumothorax and its initial treatment; resolved * Constipation * P. Acnes in initial blood culture 1 of 2 bottles, suspected contaminant * Anemia due to above * Elevated hepatic transaminases PLANS: * Continue empiric antibiotics at this moment following cultures and fevers * Continue increase activity as able * Continue respiratory care as previous * Will review with Dr. Vicente Objective: Vital Signs Temp Pulse Resp BP Pulse Ox 36.9 C 89 14 93/56 L 100 01/20/19 15:27 01/20/19 15:27 01/20/19 15:27 01/20/19 15:27 01/20/19 15:27 Laboratory Results 01/19/19 16:45 01/19/19 16:45 01/19/19 01/20/19 01/21/19 06:59 06:59 06:59 Intake Total 350 Output Total 1300 1050 Balance -950 -1050 PT 12.5 SEC (12.0-15.0) 01/19/19 16:45 INR 0.97 (0.83-1.16) 01/19/19 16:45 - Time Spent With Patient Time Spent with Patient: greater than 35 minutes Time Spent with Patient: Greater than 35 minutes spent on this patients care, greater than 50% of time spent counseling, educating, and coordinating care regarding the above mentioned plan. ICD10 Worksheet Patient Problems: Problems Problem Status Onset Encounter for chest tube placement Acute Hypotension Acute Hypoxia Acute Pneumothorax, right Acute Pulmonary edema Acute Tension pneumothorax Acute
[2019-01-20] MEDS: ACETAMINOPHEN 650 MG/20.3 ML UDCUP PO PRN (20:24)
[2019-01-21 05:23] LABS: PLATELET COUNT 353 10^3/uL (150-400)
[2019-01-21] MEDS: POLYETHYLENE GLYCOL 3350 17 GM PKT PO SCH ×2 (08:28→20:00)
[2019-01-21] MEDS: SENNOSIDES/DOCUSATE SODIUM TAB PO SCH ×2 (08:28→20:01)
[2019-01-21] MEDS: NS 1,000 ML IV SCH (09:07)
--- NOTE | 2019-01-21 09:44 | SOAPPROG ---
SOAP Progress Note Assessment/Plan: Assessment: 18-year-old female status post VATS pleurodesis CT scan was reassuring, hasnt had any fever still on empiric abx for likely pna, agree with continuing these cough, likely 2/2 re-expansion, immobility, pna - discussed IS today, she could barley pull 500. This needs to improve ambulate home in day or so Plan: 01/20/19 12:58 01/21/19 09:43 Subjective: still has cough Objective: Vital Signs Temp Pulse Resp BP Pulse Ox 36.7 C 76 16 116/61 96 01/21/19 07:40 01/21/19 07:40 01/21/19 07:40 01/21/19 07:40 01/21/19 07:40 Laboratory Results 01/21/19 05:03 01/19/19 16:45 01/20/19 01/21/19 01/22/19 05:59 05:59 05:59 Intake Total 1200 Output Total 1050 Balance -1050 1200 PT 12.5 SEC (12.0-15.0) 01/19/19 16:45 INR 0.97 (0.83-1.16) 01/19/19 16:45 ICD10 Worksheet Patient Problems: Problems Problem Status Onset Encounter for chest tube placement Acute Hypotension Acute Hypoxia Acute Pneumothorax, right Acute Pulmonary edema Acute Tension pneumothorax Acute
[2019-01-21] MEDS: ACETAMINOPHEN 650 MG/20.3 ML UDCUP PO PRN (15:07)
--- NOTE | 2019-01-21 16:32 | ASMTCMCOM ---
CM Note CM Note Notes: Spoke with pt and mother in the room through an ham curer. Pt's mother requested assistance in seeking temporary housing with a kitchen in [place] where pt and family can stay immediately after discharge. CM provided several websites where they might begin their search. PT and OT have recommended pt for discharge independently. With pt's permission, CM contacted [facility] and notified them that pt may benefit from CM, RN or mental health support following discharge. Pt requested letter of excuse for school missed, which was provided by [employer]. Pt also requested two copies of medical records upon discharge and confirmed that she had signed release form already. RN notified. CM to follow. D/C Plan: Independent Date Signed: 01/21/2019 04:31 PM Electronically Signed By:Corinne Bates
--- NOTE | 2019-01-21 16:53 | HOSPPROG ---
Hospitalist Progress Note Assessment/Plan: DIAGNOSES: * Sepsis, Acute onset 01/19 now resolved after IV fluids and with antibiotics started -etiology uncertain; consider pneumonia however the abnormalities on CT could be resolving from her previous lung abnormalities earlier this admission and she has no specific new pulmonary symptoms * Status post spontaneous pneumothorax requiring chest tube, subsequent re- expansion lung injury and edema, required mechanical ventilation and VATS * Shock associated with pneumothorax and its initial treatment; resolved * Constipation * P. Acnes in initial blood culture 1 of 2 bottles, suspected contaminant * Anemia due to above * Elevated hepatic transaminases resolving PLANS: * Continue empiric antibiotics at this moment following cultures and fevers * Continue increase activity as able * Continue respiratory care as previous I spent approximately 25 min answering questions for the patient's mother with the web based [employer] translation service at the bedside in addition to my examination. Total time at bedside 40 min today SUBJECTIVE: The patient's today feels better overall, is up ambulating the hallway more easily walking faster in further Still with the same cough No chills or sweats today Eating well As I look at her IV site in her right arm she does admit to me that it feels a bit irritated OBJECTIVE: No fever since the evening of January 19 Still with some intermittent tachycardia to 105 Respiratory rate good, oxygenation good, blood pressures good Exam: Awake alert oriented lying in bed Skin warm and dry; she has a peripheral IV on the distal radial right wrist that has a small area of erythema proximal to it that is minimally tender, no evidence of fluctuance Slight delay of capillary refill in fingers HEENT normal Neck without swelling tenderness or other abnormality Lungs taking a better breath and I hear better breath sounds today, still coughs with each deep inspiration Heart tachycardic, heart sounds diminished but no abnormality heard other than rate Abdomen soft nontender nondistended No edema of extremities Joints unremarkable Lab data: White blood cell [place] [id number] Hemoglobin at 10 Microbiology: Blood cultures from January 19 remain with no growth at present Objective: Vital Signs Temp Pulse Resp BP Pulse Ox 37.3 C 107 H 18 115/62 95 01/21/19 16:02 01/21/19 16:02 01/21/19 16:02 01/21/19 16:02 01/21/19 16:02 Laboratory Results 01/21/19 05:03 01/19/19 16:45 04/01/21/19 01/22/19 06:59 06:59 06:59 Intake Total 1200 Output Total 1050 Balance -1050 1200 PT 12.5 SEC (12.0-15.0) 01/19/19 16:45 INR 0.97 (0.83-1.16) 01/19/19 16:45 ICD10 Worksheet Patient Problems: Problems Problem Status Onset Encounter for chest tube placement Acute Hypotension Acute Hypoxia Acute Pneumothorax, right Acute Pulmonary edema Acute Tension pneumothorax Acute
[2019-01-22] MEDS: ENOXAPARIN 40 MG/0.4 ML SYR SC SCH (09:41)
--- NOTE | 2019-01-22 09:51 | SOAPPROG ---
SOAP Progress Note Assessment/Plan: Assessment/plan: 18 y/o F with tension pneumothorax who then developed re-expansion pulmonary edema. Required mechanical ventilation Self-extubated AM of 01/08. Now s/p R VATS c pleurodesis and resection of apical blebs, 01/15. Chest tubes removed 4 days ago. Dressing changed today. Ok to shower. Sepsis. Unclear etiology. Likely pna. Chest CT negative for PE. Continue empiric abx. VSS stable. Continue IS. Dispo: home tomorrow. Discussed with medicine. Pt will get one more dose of iv abx today, then switch to oral Levaquin. S: Feels good. Pain is significantly improved. No fevers or chills. O: Alert Afebrile, VSS RRR CTAB, no increased WOB. Dressing changed today, incisions are healing well. Abdomen: soft, nontender, nondistended 01/22/19 09:52 Objective: Vital Signs Temp Pulse Resp BP Pulse Ox 37.2 C 73 16 117/70 96 01/22/19 08:00 01/22/19 08:00 01/22/19 08:00 01/22/19 08:00 01/22/19 08:00 Laboratory Results 01/21/19 05:03 01/19/19 16:45 01/21/19 01/22/19 01/23/19 05:59 05:59 05:59 Intake Total 1200 Balance 1200 PT 12.5 SEC (12.0-15.0) 01/19/19 16:45 INR 0.97 (0.83-1.16) 01/19/19 16:45 ICD10 Worksheet Patient Problems: Problems Problem Status Onset Encounter for chest tube placement Acute Hypotension Acute Hypoxia Acute Pneumothorax, right Acute Pulmonary edema Acute Tension pneumothorax Acute
[2019-01-22] MEDS: POLYETHYLENE GLYCOL 3350 17 GM PKT PO SCH ×2 (10:23→20:41)
[2019-01-22] MEDS: SENNOSIDES/DOCUSATE SODIUM TAB PO SCH ×2 (10:23→20:41)
--- NOTE | 2019-01-22 15:48 | HOSPPROG ---
Hospitalist Progress Note Assessment/Plan: DIAGNOSES: * Sepsis (fever, tachycard., high wbc), Acute onset 01/19 now resolved after IV fluids and with antibiotics started -etiology uncertain; consider pneumonia however the abnormalities on CT could be resolving from her previous lung abnormalities earlier this admission; no other localizing findings * Status post spontaneous pneumothorax requiring chest tube, subsequent re- expansion lung injury and edema, required mechanical ventilation and VATS * Shock associated with pneumothorax and its initial treatment; resolved * P. Acnes in initial blood culture 1 of 2 bottles, suspected contaminant * Anemia due to above * Elevated hepatic transaminases resolving PLANS: * Continue empiric antibiotics, switched to Levaquin at this point, would treat for 7 days through 01/25 * Continue increase activity as able * Continue respiratory care as previous * I reviewed surgery. Current plan would be to send her home tomorrow, and if all is stable overnight I agree with that plan SUBJECTIVE: Feels again a bit better today ambulating better Less pain Eating well No chills OBJECTIVE: Vitals: Afebrile otherwise stable Exam: Awake alert oriented lying in bed Skin warm and dry; erythema at former right wrist IV site resolved at this time HEENT normal Neck without swelling tenderness or other abnormality Lungs taking a better breath and I hear better breath sounds today, still coughs with each deep inspiration Heart tachycardic, heart sounds diminished but no abnormality heard other than rate Abdomen soft nontender nondistended No edema of extremities Joints unremarkable Microbiology: Blood cultures from January 19 remain with no growth at present Objective: Vital Signs Temp Pulse Resp BP Pulse Ox 36.8 C 92 18 94/58 L 97 01/22/19 11:46 01/22/19 11:46 01/22/19 11:46 01/22/19 11:46 01/22/19 11:46 Laboratory Results 01/21/19 05:03 01/19/19 16:45 01/21/19 01/22/19 01/23/19 06:59 06:59 06:59 Intake Total 1200 Balance 1200 PT 12.5 SEC (12.0-15.0) 01/19/19 16:45 INR 0.97 (0.83-1.16) 01/19/19 16:45 ICD10 Worksheet Patient Problems: Problems Problem Status Onset Encounter for chest tube placement Acute Hypotension Acute Hypoxia Acute Pneumothorax, right Acute Pulmonary edema Acute Tension pneumothorax Acute
[2019-01-23 08:33] VITALS: BP 98/58
--- NOTE | 2019-01-23 08:59 | SOAPPROG ---
SOAP Progress Note Assessment/Plan: Assessment/Plan: 18 year old with tension pneumothorax who then developed re- expansion pulmonary edema. Required mechanical ventilation Self-extubated AM of 01/08. persistent air leak. now s/p R VATS c pleurodesis and resection of apical blebs, 01/15. Sepsis protocol triggered 2/2 fever and tachycardia. On IV abx. Doing well. Appreciate medicine input and care. Dc to home today c levaquin and ibuprofen if chest xray ok this am. Discussed care of her chest tube site. Discussed limitations. Plan for early follow up later this week or early next week with new CXR. S: some pain in her back, worse when lying down. No SOB. No fever, chills, or sweats. alert, nad ctab no wob rrr abd soft chest tube site dressed. inc cdi. 01/23/19 08:57 Objective: Vital Signs Temp Pulse Resp BP Pulse Ox 36.3 C 112 H 16 98/58 L 95 01/23/19 08:00 01/23/19 08:00 01/23/19 08:00 01/23/19 08:00 01/23/19 08:00 Laboratory Results 01/21/19 05:03 01/19/19 16:45 PT 12.5 SEC (12.0-15.0) 01/19/19 16:45 INR 0.97 (0.83-1.16) 01/19/19 16:45 ICD10 Worksheet Patient Problems: Problems Problem Status Onset Encounter for chest tube placement Acute Hypotension Acute Hypoxia Acute Pneumothorax, right Acute Pulmonary edema Acute Tension pneumothorax Acute
--- NOTE | 2019-01-23 09:46 | HOSPPROG ---
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 Chest tube placed and placed to wall suction with rapid re-expansion, resulting in pulmonary edema and hypotension, requiring intubation. She self-extubated 01/08. S/p VATS. Sepsis (fever, tachycard., high wbc), Acute onset 01/19 now resolved after IV fluids and with antibiotics started -etiology uncertain; consider pneumonia however the abnormalities on CT could be resolving from her previous lung abnormalities earlier this admission; no other localizing findings * Status post spontaneous pneumothorax requiring chest tube, subsequent re- expansion lung injury and edema, required mechanical ventilation and VATS * Shock associated with pneumothorax and its initial treatment; resolved * P. Acnes in initial blood culture 1 of 2 bottles, suspected contaminant * Anemia due to above * Elevated hepatic transaminases resolving * plan is to treat her w Levaquin at dc through 01/25 * she will f/u with Dr Del Castillo *Plan: met w Jazmín w [facility], w Dr Del Castillo. She will get another chest x ray prior to dc today. I reviewed w the patient side effects of Levaquin and the s/sx of infection. Subjective: Jazmín is concerned about her right lung, feels some discomfort on her back area when she lies down. Objective: Vital Signs Temp Pulse Resp BP Pulse Ox 36.3 C 112 H 16 98/58 L 95 01/23/19 08:00 01/23/19 08:00 01/23/19 08:00 01/23/19 08:00 01/23/19 08:00 Laboratory Results 01/21/19 05:03 01/19/19 16:45 PT 12.5 SEC (12.0-15.0) 01/19/19 16:45 INR 0.97 (0.83-1.16) 01/19/19 16:45 - Physical Exam Constitutional: uncomfortable Eyes: PERRL Ears, Nose, Mouth, Throat: hearing normal Cardiovascular: regular rate and rhythym Respiratory: no respiratory distress, reduced air movement (throughout the right lung area) Skin: warm Musculoskeletal: generalized weakness Neurologic: AAOx3 Psychiatric: interacting appropriately ICD10 Worksheet Patient Problems: Problems Problem Status Onset Encounter for chest tube placement Acute Hypotension Acute Hypoxia Acute Pneumothorax, right Acute Pulmonary edema Acute Tension pneumothorax Acute
--- NOTE | 2019-01-23 09:58 | ASMTLACE ---
LACE Length of stay for Answers: 14 days or more current admission Acuity / Level of Answers: Yes Care: Did the patient have an inpatient admission? # of Emergency department Answers: 1-2 visits in the last 6 months Score: 11 Date Signed: 01/23/2019 09:54 AM Electronically Signed By:Corinne Bates
--- NOTE | 2019-01-23 10:22 | ASDISCHSUM ---
Discharge Information Plan Status:Home with No Needs Medically Cleared to Leave:01/23/2019 Discharge Date:01/23/2019 CM D/C Disposition:Home, Routine, Self-Care ADT D/C Disposition:Home, Routine, Self-Care Projected Discharge Date:01/23/2019 Transportation at D/C:Family Discharge Delay Reason: Follow-Up Date:01/23/2019 Discharge Slot: Final Diagnosis:pneumothorax Placement Information Patient Contact Information Contact Name:PHILIPPE Relationship:French Address: Work Phone: City: [facility] Phone: State/[place] Code: Email: Financial Information Financial Class:Commercial Primary Plan Desc:Basic-Fit Primary Plan Number:[id number] Secondary Plan Desc: Secondary Plan Number: Assessment Information LACE LACE Length of stay for Answers: 14 days or more current admission Acuity / Level of Answers: Yes Care: Did the patient have an inpatient admission? # of Emergency department Answers: 1-2 visits in the last 6 months Score: 11 Date Signed: 01/23/2019 09:54 AM Electronically Signed By:Corinne Bates [facility] Progress Note DAPHNE Note DAPHNE Note Notes: Pt is a 18 y/o female admitted for a right pneumothorax. Pt currently is on a vent. DAPHNE spoke w/ pts family friend Anil on the phone. She lives in [place]. DAPHNE provided Anil w/ a letter from the doctor stating that pt is in the ICU and it would be great if pts parents can come to [place] to be w/ their daughter. Pts parents will bring letter to the consulate tomorrow. The consulate is closed today in [place] due to a holiday. Date Signed: 01/07/2019 01:42 PM Electronically Signed By:Kat Miladys PUBLIC WORKS INSPECTOR [facility] CM Progress Note CM Note CM Note Notes: Pt is no longer intubated. Continues to be deconditioned. PT/OT working with her. At this time OT is recommending Inpatient rehab; PT recommending Home but says they will continue to assess as pt progresses. Plan: TBD Date Signed: 01/09/2019 04:39 PM Electronically Signed By:AZ Diehl BC CM Progress Note CM Note CM Note Notes: Pt continues to improve slowy from tension pnuemothorax. She still has a CT and is on O2. Was unable to work with PT today. Parents are still in process of trying to get Dr Lupillo hawkins to see pt to discuss VATS procedure and will call parents. DC Plan: TBD Date Signed: 01/11/2019 04:24 PM Electronically Signed By:Oralia Khanna RN [facility] CM Progress Note CM Note CM Note Notes: 18 yr old student from [place], w/tension pnuemothorax and some complications. Parents now here from [place], will meet with Dr Del Castillo on Tuesday to discuss VATS procedure. PT/OT recommend Inpt Rehab, discussed with PEST CONTROLLER ASSISTANT, feels once pt has surgery she will be able to progress to independent. DC Plan: TBD Date Signed: 01/13/2019 04:07 PM Electronically Signed By:Oralia Khanna RN [facility] CM Progress Note CM Note CM Note Notes: CM discussed patient case with Neena MG, patients parents to discuss surgery with Dr. Del Castillo this morning with medical writer, VATS scheduled for tomorrow morning. PT/OT to eval after surgery, CM to follow. D/C Plan: TBD Date Signed: 01/14/2019 11:03 AM Electronically Signed By:Rand Bhandari [facility] CM Progress Note CM Note CM Note Notes: Spoke w/MD, pt continues to improve after VATS procedure. May have chest tubes dc'd tomorrow, inpt rehab continues to follow but thinks that pt may end up too good for rehab. DC Plan: TBD Date Signed: 01/17/2019 02:49 PM Electronically Signed By:Oralia Khanna RN [facility] CM Progress Note CM Note DAPHNE Note Notes: Pt feeling ill today, tachycardic and elevated temperature. Blood cultures pending, DAPHNE w/f. Dc date uncertain, DAPHNE w/f. Becky from [employer] met with pt and parents today. DC Plan: TBD Date Signed: 01/19/2019 05:33 PM Electronically Signed By:Oralia Khanna RN [facility] DAPHNE Progress Note DAPHNE Note DAPHNE Note Notes: Spoke with pt and mother in the room through an spanish medical interpreter. Pt's mother requested assistance in seeking temporary housing with a kitchen in [place] where pt and family can stay immediately after discharge. provided several websites where they might begin their search. PT and OT have recommended pt for discharge independently. With pt's permission, DAPHNE contacted [employer] and notified them that pt may benefit from CM, RN or mental health support following discharge. Pt requested letter of excuse for school missed, which was provided by DAPHNE. Pt also requested two copies of medical records upon discharge and confirmed that she had signed release form already. RN notified. CM to follow. D/C Plan: Independent Date Signed: 01/21/2019 04:31 PM Electronically Signed By:Corinne Bates Case Management Discharge Plan Note Case Management Discharge Discharge Order Complete? Answers: Yes Patient to Obtain Answers: via Family Medications Transportation Arranged Answers: Family/Friends Transport will Pick (Date 01/23/2019 12:00 AM & Time) Family Notified Answers: Yes Notes: parents in the room Discharge Comments Notes: Pt to discharge independently with support from parents who are staying in town through the beginning of January and beyond. Pt and family comfortable with this plan. Toribio speeder worker and RN notified of pt's dc and ongoing needs. No further CM needs noted at this time. Date Signed: 01/23/2019 09:56 AM Electronically Signed By:Corinne Bates Intervention Information Intervention Type:No Admission Order Date of Service:01/07/2019 09:08 AM Patient Type:Observation Staff Member:Jennifer Villa Hours: Discipline: Severity: Comment: Intervention Type:*Incorrect Registration Date of Service:01/07/2019 09:12 AM Patient Type:Inpatient Staff Member:Jennifer Villa Hours: Discipline: Severity: Comment:
[2019-01-23] MEDS: SENNOSIDES/DOCUSATE SODIUM TAB PO SCH (11:24)
[2019-01-23] MEDS: POLYETHYLENE GLYCOL 3350 17 GM PKT PO SCH (11:24)
[2019-01-23] MEDS: ENOXAPARIN 40 MG/0.4 ML SYR SC SCH (11:24)
--- NOTE | 2019-02-06 23:03 | GDS ---
[f rep st] DISCHARGE SUMMARY DISCHARGE DIAGNOSES: 1. Spontaneous pneumothorax. 2. Pulmonary edema. 3. Apical pleural bleb. PROCEDURES: 1. Emergent chest tube thoracostomy. 2. Placement of right subclavian 3-lumen catheter. 3. Video-assisted thoracoscopic lung surgery with resection of apical blebs and pleurodesis. CONSULTATIONS: 1. Dr. Jim Naranjo, Pulmonology/cloth classer. 2. Nickie Franco, Infectious Disease. HOSPITAL COURSE: The patient is a 18-year-old female student from [facility] who is from [place], who developed a spontaneous tension pneumothorax and presented to the ED. A chest tube was e mergently placed. Her lung well expanded, but she developed pulmonary edema requiring intubation and care for in the ICU. She was admitted to the trauma service. The patient's condition of pulmonary edema improved. However, she had a persistent air leak. Infect ious Disease was consulted and weighed in that an infectious cause was unlikely. CT scan was perform ed and showed no evidence of pulmonary embolism and no obvious pulmonary blebs. Ultimately, patient's parents arrived from [place] and with an salesperson shoes, it was decided, along with the patient and her parents, to proceed with surgery. She underwent a VATS surgery. She was found t o have obvious apical blebs. These were wedge resected. Pleurodesis was performed. New chest tubes were placed. The patient's procedure was uncomplicated, and she tolerated it well. The patient's postoperative course was relatively uncomplicated. Ultimately, her chest tube drainage decreased and her lung remained expanded on water-seal and so her chest tube was removed without maninder nt. She was discharged to home in stable condition with plans for outpatient followup. Limitations were discussed. /[id number]/MODL
== END 2019-01-23 14:16 | disposition home or self-care (01) | DRG 163 ==
LOC: F2N 16:59 → OBSVTOIN 01-07 09:10 → F3E 01-09 17:56
PROVIDERS: ADMIT Surgery; ATTEND Surgery
PROC: 0W9930Z Drainage of Right Pleural Cavity with Drainage Device, Percutaneous Approach (ICD-10-PCS; 2019-01-06)
PROC: 0BH17EZ Insertion of Endotracheal Airway into Trachea, Via Natural or Artificial Opening (ICD-10-PCS; 2019-01-06)
PROC: 5A1945Z Respiratory Ventilation, 24-96 Consecutive Hours (ICD-10-PCS; 2019-01-06)
PROC: 02HV33Z Insertion of Infusion Device into Superior Vena Cava, Percutaneous Approach (ICD-10-PCS; 2019-01-06)
PROC: 3E0L3GC Introduction of Other Therapeutic Substance into Pleural Cavity, Percutaneous Approach (ICD-10-PCS; principal; 2019-01-15 07:15)
PROC: 0BTC4ZZ Resection of Right Upper Lung Lobe, Percutaneous Endoscopic Approach (ICD-10-PCS; principal; 2019-01-15 07:15)
DX: J93.0 Spontaneous tension pneumothorax (principal); J81.0 Acute pulmonary edema; J96.01 Acute respiratory failure with hypoxia; G92 Toxic encephalopathy; T81.19XA Other postprocedural shock, initial encounter; K59.00 Constipation, unspecified; D64.9 Anemia, unspecified; I95.9 Hypotension, unspecified; E86.9 Volume depletion, unspecified
CPT/HCPCS: 87449-90; 92507-GN; 92526-GN; 92610-GN; 96374; 97116-GP; 97161-GP; 97165-GO; 97530-GO; 97530-GP; 97535-GO; J0330; J0690; J0696; J1100; J1170; J1650; J1885; J1940; J2060; J2250; J2370; J2405; J2543; J2550; J2704; J3010; J3370; J3480; Q9967

== ENCOUNTER → 2019-01-26 | Outpatient (CLI) | payer OTHER | LOC: FIMAGING 15:46 | PROVIDERS: ATTEND Surgery | DX: Z09 Encounter for follow-up examination after completed treatment for conditions other than malignant neoplasm (principal); Z98.890 Other specified postprocedural states ==

== ENCOUNTER → 2019-03-05 | Outpatient (CLI) | payer OTHER | LOC: FIMAGING 16:13 ==